=== PATIENT | female | born 1940 | race Caucasian/White ===

== ENCOUNTER 2021-09-13 15:48 | Outpatient (REF) | payer MEDICARE, OTHER, SELFPAY ==
[2021-09-13 17:51] LABS: SARS PCR* Negative SARS-CoV-2 (Negative)
== END 2021-09-13 15:49 | disposition home or self-care (01) ==
LOC: NPINS 15:48
PROVIDERS: PCP Family Medicine; Visit Provider Internal Medicine Gastroenterology
DX: Z20.822 Contact with and (suspected) exposure to COVID-19 (principal)
CPT/HCPCS: 87635

== ENCOUNTER 2021-09-16 07:48 | Outpatient (CLI) | payer MEDICARE, OTHER, SELFPAY | END 2021-09-16 07:49 | disposition home or self-care (01) | LOC: OP CLINIC 07:49 | PROVIDERS: PCP Family Medicine; Visit Provider Internal Medicine Gastroenterology | DX: Z12.11 Encounter for screening for malignant neoplasm of colon (principal); K57.30 Diverticulosis of large intestine without perforation or abscess without bleeding; K62.1 Rectal polyp; Z86.010 Personal history of colon polyps | CPT/HCPCS: 45380; 88305; J2250; J3010 ==

== ENCOUNTER 2022-05-21 10:22 | Emergency (ER) | payer MEDICARE, OTHER, SELFPAY ==
[2022-05-21 10:25] VITALS: BP 156/85; PULSE 72; RESP 18; TEMP 36.4; O2SAT 96; BMI 32.7
--- NOTE | 2022-05-21 10:39 | CRLHL7_ITS ---
For Patients: As a result of the Century Cures Act, medical imaging exams and procedure reports are released immediately into your electronic medical record. You may view this report before your referring provider. If you have questions, please contact your health care provider. INDICATION: Weakness. TECHNIQUE: CT head without contrast. COMPARISON: None. FINDINGS: The CSF spaces are consistent with patient`s age. Scattered hypodensities within the white matter tracts of both cerebral hemispheres are nonspecific but typically seen with small vessel disease/chronic white-matter ischemic changes of aging. No intracranial hemorrhage or mass effect is identified. No abnormal intra-axial or extra-axial fluid collections are present. The ventricles are unremarkable. There is mucosal thickening and a fluid level within the right maxillary sinus which may be seen with acute sinusitis. The remaining paranasal sinuses and mastoid air cells are well aerated. The calvarium is unremarkable. The orbits and scalp soft tissues are normal. IMPRESSION: 1. No acute intracranial abnormality. 2. Mucosal thickening and fluid level within the right maxillary sinus which may be seen with acute sinusitis. Please note that all CT scans at this facility use dose modulation, iterative reconstruction, and/or weight-based dosing when appropriate to reduce radiation dose to as low as reasonably achievable. Dictated by Sky Patel MD @ 05/21/2022 12:11:22 PM (Electronically Signed)
--- NOTE | 2022-05-21 10:43 | ED_ITS ---
HPI - General Adult General Time Seen by Provider: 10:43 Date Seen: 05/21/22 Chief complaint: Chest Pain Stated complaint: chest pressure Time Seen by Provider: 05/21/22 10:30 Source: patient Mode of arrival: EMS Limitations: no limitations History of Present Illness HPI narrative: Patient is a 1-year-old female who has a history of hypertension, and is at about the 1 year anniversary of her daughter's from a stroke. She had an episode this morning where she felt ?something was wrong? this was brief transient. She had a trip similar episode just immediately post hurt daughter's last year. Where she had word-finding inability in confusion. That improved she reports today was ?much less than before? patient reports she has had some nighttime chest tightness for about a month, today it did not seem to go away like it typically does in the morning and she got a nitro spray in the ambulance and that got better she has had no fevers chills cough no history of ischemic heart disease. She has been very stressed by her daughters passing and the anniversary of it. No fevers chills cough she resolved completely at this time and she has no chest pain or other concern. No neurologic concern at present. Related Data Home Medications Medication Instructions Recorded Confirmed atorvastatin 20 mg tablet 20 mg PO QPM 05/21/22 05/21/22 lisinopril 40 mg tablet 40 mg PO DAILY 05/21/22 05/21/22 Allergies Allergy/AdvReac Type Severity Reaction Status Date / Time cat dander Allergy Unknown Verified 05/21/22 10:47 Review of Systems Status of ROS: Reports: 6 or more systems reviewed and unremarkable except as noted in History and below [facility] Social History Smoking Status: Never smoker Do you use any of these nicotine containing products: None How often do you have a drink containing alcohol: never AUDIT-C Alcohol total score: 0 Non-prescribed substance use: denies use Exam Narrative: Exam Narrative: Objective: Patient's vital signs show slightly elevated blood pressure Alert orient x3, no cyanosis, no facial asymmetry Pupils react to light extra movements intact Neck is supple Chest clear Heart rhythm regular without murmur 2/6 systolic murmur Abdomen benign soft nontender Extremities are no edema neurologic nonfocal Good peripheral perfusion noted Const: Vital Signs, click to edit/add: Vital Signs - 24 hr 05/21/22 10:25 05/21/22 11:17 05/21/22 11:30 Temperature 97.6 F Pulse Rate 65 53 L Pulse Rate [Right Pulse Oximeter] 72 Respiratory Rate 18 Blood Pressure Blood Pressure [Ri ght Upper Arm] 156/85 H Pulse Oximetry 96 96 97 Oxygen Delivery Me thod Room Air 05/21/22 11:51 05/21/22 12:01 05/21/22 12:02 Temperature Pulse Rate 52 L 51 L 53 L Pulse Rate [Right Pulse Oximeter] Respiratory Rate Blood Pressure 130/72 128/71 Blood Pressure [Ri ght Upper Arm] Pulse Oximetry 97 96 96 Oxygen Delivery Me thod Course Vital Signs Vital signs: Initial Vital Signs Temperature 97.6 F 05/21/22 10:25 Temperature Source Temporal Artery Scan 05/21/22 10:25 Pulse Rate 72 05/21/22 10:25 Respiratory Rate 18 05/21/22 10:25 Blood Pressure 156/85 H 05/21/22 10:25 Blood Pressure Mean 108 05/21/22 10:25 Blood Pressure Position Sitting 05/21/22 10:25 Pulse Oximetry 96 05/21/22 10:25 Oxygen Delivery Method Room Air 05/21/22 10:25 Vital Signs Temperature 97.6 F 05/21/22 10:25 Pulse Rate 72 05/21/22 10:25 Respiratory Rate 18 05/21/22 10:25 Blood Pressure 156/85 H 05/21/22 10:25 Pulse Oximetry 96 05/21/22 10:25 Oxygen Delivery Method Room Air 05/21/22 10:25 Temperature 97.6 F 05/21/22 10:25 Pulse Rate 53 L 05/21/22 12:02 Respiratory Rate 18 05/21/22 10:25 Blood Pressure 128/71 05/21/22 12:02 Pulse Oximetry 96 05/21/22 12:02 Oxygen Delivery Method Room Air 05/21/22 10:25 Medical Decision Making MDM Narrative Medical decision making narrative: Patient is an 81 year white female with history of hypertension history of upper GI bleeding, and history of chest pain who presents with good amount of psychosocial stress, some chest pressure at night for the last month, some chest pressure today that relieved with nitro, but she also felt a little bit confusional and like she was not ?in control? the patient denies any focal neurologic complaint or weakness. She had a similar episode after the passing of her daughter a year ago. We are entering the year anniversary for her. I think could be appropriate to do a cardiac workup as well as a head CT scan she has a strong family history of stroke although I have a low likelihood of this. Would also check electrolytes rehydrate with some fluid will give her aspirin after CT scan is back and normal. Disposition pending findings above Addendum: EKG shows normal sinus rhythm no acute ST T wave changes Addendum: Patient's head CT shows a small amount of fluid and her sinus but no intracranial injury or abnormality. Patient continues to feel well. Patient's EKG looks unremarkable as mention, troponin is negative, white count and hemoglobin are normal, ER profile is unremarkable, CRP is negative. At this point with discussion with Liza we elected to let her go home at this time. She has a history of bleeding ulcer and I would not suggest she do aspirin and she is hesitant to do that as well. Would recommend follow up with regular doctor next couple of days for reassessment, light activity interim return as needed. The patient declined antibiotics for the sinus fluid Lab Data Labs: Lab Results 05/21/22 Range/Units 11:00 WBC 4.52 (4.50-11.00) K/uL RBC 4.10 (4.00-5.20) m/uL Hgb 12.9 (12.0-16.0) gm/dL Hct 38.6 (33.0-51.0) % MCV 94 (80-100) fL MCH 32 (26-34) pg MCHC 33 (32-36) gm/dL RDW Coeff of Alejo 13.0 (11.5-15.5) % Plt Count 224 (140-440) K/uL Neut % (Auto) 56.8 (42.0-72.0) % Lymph % (Auto) 30.8 (20-44) % [place] % (Auto) 10.0 (0.0-11.0) % Eos % (Auto) 1.5 (0.0-7.0) % Baso % (Auto) 0.9 (0.0-3.0) % Neut # (Auto) 2.57 (1.7-7.0) K/uL Lymph # (Auto) 1.39 (0.90-2.90) K/uL [place] # (Auto) 0.50 (0.00-0.90) K/UL Eos # (Auto) 0.07 (0.00-0.50) K/uL Baso # (Auto) 0.04 (0.00-0.30) K/uL Sodium 139 (135-149) mmol/L Potassium 4.1 (3.6-5.1) mmol/L Chloride 105 (96-114) mmol/L Carbon Dioxide 29 (20-32) mmol/L BUN 14 (7-30) mg/dL Creatinine 0.5 (0.5-1.5) mg/dL Estimated Creat Clear 33.71 Estimated GFR 93 ml/min Glucose 98 (60-115) mg/dL Calcium 9.0 (8.4-10.6) mg/dL Total Bilirubin 1.0 (0.1-1.5) mg/dL Direct Bilirubin 0.2 (0.0-0.5) mg/dL AST 34 (12-35) U/L ALT 29 (4-35) U/L Alkaline Phosphatase 59 (40-150) U/L Troponin I < 0.01 L (0.01-0.04) ng/mL C-Reactive Protein < 0.5 L (0.5-1.0) mg/dL NT-Pro-B Natriuret Pep 107 pg/mL Total Protein 6.7 (6.0-8.3) g/dL Albumin 4.1 (3.3-5.0) g/dL Discharge Plan Discharge Clinical Impression: Psychosocial stressors, Chest pain Patient Disposition: Home w/ Parent or Adult Condition: Improved Additional Instructions: 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 Follow up with regular doctor next 2-3 days, return to ED sooner problems or concerns. Activity Level: Light activity Discharge Diet: Regular Prescriptions: No Action atorvastatin 20 mg tablet 20 mg PO QPM lisinopril 40 mg tablet 40 mg PO DAILY Follow Up/Referrals: Parveen Sanon MD [Primary Care Provider] - Stand Alone Forms: [employer] Info Instructions
[2022-05-21 11:08] LABS: Basophils Absolute Auto 0.04 K/uL (0.00-0.30); Basophils Percent Auto 0.9 % (0.0-3.0); Eosinophils Absolute Auto 0.07 K/uL (0.00-0.50); Eosinophils Percent Auto 1.5 % (0.0-7.0); Hematocrit 38.6 % (33.0-51.0); Hemoglobin* 12.9 gm/dL (12.0-16.0); Lymphocytes Absolute Auto 1.39 K/uL (0.90-2.90); Lymphocytes Percent Auto 30.8 % (20-44); Mean Corpuscular HGB Conc 33 gm/dL (32-36); Mean Corpuscular Hemoglobin 32 pg (26-34); Mean Corpuscular Volume 94 fL (80-100); Neutrophils Absolute Auto 2.57 K/uL (1.7-7.0); Neutrophils Percent Auto 56.8 % (42.0-72.0); Platelet Count* 224 K/uL (140-440); White Blood Count* 4.52 K/uL (4.50-11.00)
[2022-05-21 11:12] LABS: Slide Review Reflex No
[2022-05-21 11:17] VITALS: PULSE 65; O2SAT 96
[2022-05-21 11:30] VITALS: PULSE 53; O2SAT 97
[2022-05-21] MEDS: 0.9 % SODIUM CHLORIDE 500 ML 500 ML IV (11:33)
[2022-05-21 11:43] LABS: Albumin* 4.1 g/dL (3.3-5.0); Chloride* 105 mmol/L (96-114)
[2022-05-21 11:44] LABS: Potassium* 4.1 mmol/L (3.6-5.1); Sodium* 139 mmol/L (135-149)
[2022-05-21 11:46] LABS: Creatinine* 0.5 mg/dL (0.5-1.5); Est. Creatinine Clearance* 33.71; Estimated Glomerular Filt Rate 93 ml/min
[2022-05-21 11:47] LABS: Alanine Aminotransferase* 29 U/L (4-35); Alkaline Phosphatase* 59 U/L (40-150); Aspartate Amino Transferase* 34 U/L (12-35); Bilirubin Direct* 0.2 mg/dL (0.0-0.5); Blood Urea Nitrogen* 14 mg/dL (7-30); Carbon Dioxide* 29 mmol/L (20-32); Glucose* 98 mg/dL (60-115); Total Protein* 6.7 g/dL (6.0-8.3)
[2022-05-21 11:51] VITALS: BP 130/72; PULSE 52; O2SAT 97
[2022-05-21 11:52] LABS: C Reactive Protein* < 0.5 mg/dL (0.5-1.0)
[2022-05-21 12:00] LABS: NT Pro B Type NatriureticPept* 107 pg/mL; Troponin I* < 0.01 ng/mL (0.01-0.04)
[2022-05-21 12:01] VITALS: PULSE 51; O2SAT 96
[2022-05-21 12:02] VITALS: BP 128/71; PULSE 53; O2SAT 96
== END 2022-05-21 12:49 | disposition home or self-care (01) ==
PROVIDERS: Emergency Provider Family Medicine; PCP Family Medicine
DX: F41.9 Anxiety disorder, unspecified (principal); F43.89 Other reactions to severe stress
CPT/HCPCS: 36415; 70450; 80048; 80076; 83880; 84484; 85025; 86140; 93005; 94761; 99284; 99285; J7120

== ENCOUNTER 2023-02-21 14:09 | Emergency (ER) | payer MEDICARE, OTHER, SELFPAY ==
[2023-02-21] VITALS (10 sets, daily range): BP systolic 101–122; BP diastolic 58–79; PULSE 49–65; RESP 18; TEMP 36.4; O2SAT 94–99; BMI 32.9
--- NOTE | 2023-02-21 14:30 | CRLHL7_ITS ---
For Patients: As a result of the Century Cures Act, medical imaging exams and procedure reports are released immediately into your electronic medical record. You may view this report before your referring provider. If you have questions, please contact your health care provider. INDICATION: Lower abdominal pain TECHNIQUE: CT abdomen and pelvis acquired with IV contrast. 89 mL Isovue 370 COMPARISON: None FINDINGS: Lower chest: 5 millimeter right lower lobe pulmonary nodule 3 Liver: Small cyst in the liver. Spleen: Unremarkable. Pancreas: Unremarkable. Gallbladder and bile ducts: Unremarkable. Kidneys: Unremarkable. Adrenal glands: Unremarkable. GI tract: Diverticulosis appendix is normal. Vascular structures: Negative. No sign of aneurysm. Lymph nodes: Unremarkable. Miscellaneous: Unremarkable. No free air or significant free fluid. Pelvic Organs: Unremarkable. Bones: Unremarkable for age. IMPRESSION: 1. No acute findings in the abdomen or pelvis. Diverticulosis. 2. 5 millimeter right lower lobe pulmonary nodule follow-up per Fleischner society guidelines. Please note that all CT scans at this facility use dose modulation, iterative reconstruction, and/or weight-based dosing when appropriate to reduce radiation dose to as low as reasonably achievable. Dictated by Polly Méndez MD @ 02/21/2023 4:40:11 PM (Electronically Signed)
--- NOTE | 2023-02-21 14:56 | ED.GENADULT ---
HPI - General Adult General Date Seen: 02/21/23 Chief complaint: Dizziness/Vertigo Stated complaint: Dizzy, cold, stomach ache, sore throat Time Seen by Provider: 02/21/23 14:11 Source: patient Mode of arrival: ambulatory Limitations: no limitations History of Present Illness HPI narrative: Patient is an 82-year-old female with history of hypertension presenting to the emergency department for lightheadedness. She states this morning around 09 or 10 o'clock she started to feel sick while she is getting coffee with friends and was not feeling very well so she went home to rest. She laid on the rest and woke up later in the afternoon and was still having the symptoms. She states she is feeling lightheaded like she was going to fall and was seeing stars in her vision. She was brought by family member to the emergency department but states in the way here symptoms fully resolved and she is no longer feeling lightheaded. Denies chest pain or shortness of breath. Denies numbness or weakness. Does states she has some lower abdominal pain that started this morning. Denies dysuria, fevers, chills. Does states she is a chronic issue with intermittent diarrhea constipation and has not noticed any changes to that today. She is also complaining of a sore throat that started this morning. Related Data Home Medications Medication Instructions Recorded Confirmed atorvastatin 20 mg tablet 20 mg PO QPM 05/21/22 02/21/23 lisinopril 40 mg tablet 40 mg PO DAILY 05/21/22 02/21/23 Previous Rx's Medication Instructions Recorded cephalexin 250 mg capsule 250 mg PO QID #20 caps 02/21/23 Allergies Allergy/AdvReac Type Severity Reaction Status Date / Time cat dander Allergy Unknown Verified 02/21/23 14:17 Review of Systems Status of ROS: Reports: 10 or more systems reviewed and unremarkable except as noted in History and below PFSH PFS Social History Smoking Status: Never smoker Do you use any of these nicotine containing products: None How often do you have a drink containing alcohol: never AUDIT-C Alcohol total score: 0 Non-prescribed substance use: denies use Exam Narrative: Exam Narrative: Const: Well-nourished, Well-developed, in no distress Eyes: PERRL, no conjunctival injection, and symmetrical lids HENT: Atraumatic external nose and ears. Moist mucous membranes. Uvula midline, no tonsillar exudate or swelling Neck: Symmetric, trachea midline, No thyromegaly. CVS: Bradycardia, No murmurs or gallops. Peripheral pulses 2+ and equal in all extremities RESP: Unlabored respiratory effort. Clear to auscultation bilaterally. GI: Nontender/Nondistended, No rebound or guarding. MSK:Extremities w/o deformity, Normal Active ROM Skin: Warm, Dry. No rashes or lesions. Neuro: Normal Muscle tone, No focal neurological deficits. Psych: Awake, Alert, & Oriented x3. Appropriate mood and affect. Const: Vital Signs, click to edit/add: Vital Signs - 24 hr 02/21/23 14:17 02/21/23 15:17 02/21/23 15:41 Temperature 97.5 F L Pulse Rate 51 L Pulse Rate [Pulse Oximeter] 49 L Pulse Rate [orthos tatic lying Pulse Oximeter] 56 L Pulse Rate [orthos tatic sitting Puls e Oximeter] 60 Pulse Rate [orthos tatic standing] 58 L Respiratory Rate 18 Blood Pressure Blood Pressure [Ri ght Upper Arm] 106/58 L Blood Pressure [or thostatic lying Ri ght Arm] 101/60 Blood Pressure [or thostatic sitting Right Arm] 105/79 Blood Pressure [or thostatic standing Right Arm] 102/59 L Pulse Oximetry 95 95 Oxygen Delivery Ne thod Room Air 02/21/23 15:45 02/21/23 16:04 02/21/23 16:11 Temperature Pulse Rate 52 L 65 65 Pulse Rate [Pulse Oximeter] Pulse Rate [orthos tatic lying Pulse Oximeter] Pulse Rate [orthos tatic sitting Puls e Oximeter] Pulse Rate [orthos tatic standing] Respiratory Rate Blood Pressure 122/71 Blood Pressure [Ri ght Upper Arm] Blood Pressure [or thostatic lying Ri ght Arm] Blood Pressure [or thostatic sitting Right Arm] Blood Pressure [or thostatic standing Right Arm] Pulse Oximetry 98 94 97 Oxygen Delivery Me thod 02/21/23 16:15 Temperature Pulse Rate 58 L Pulse Rate [Pulse Oximeter] Pulse Rate [orthos tatic lying Pulse Oximeter] Pulse Rate [orthos tatic sitting Puls e Oximeter] Pulse Rate [orthos tatic standing] Respiratory Rate Blood Pressure Blood Pressure [Ri ght Upper Arm] Blood Pressure [or thostatic lying Ri ght Arm] Blood Pressure [or thostatic sitting Right Arm] Blood Pressure [or thostatic standing Right Arm] Pulse Oximetry 99 Oxygen Delivery Me thod Course Vital Signs Vital signs: Initial Vital Signs Temperature 97.5 F L 02/21/23 14:17 Temperature Source Temporal Artery Scan 02/21/23 14:17 Pulse Rate 49 L 02/21/23 14:17 Respiratory Rate 18 02/21/23 14:17 Blood Pressure 106/58 L 02/21/23 14:17 Blood Pressure Mean 74 02/21/23 14:17 Blood Pressure Position Semi-Fowlers 02/21/23 14:17 Pulse Oximetry 95 02/21/23 14:17 Oxygen Delivery Method Room Air 02/21/23 14:17 Vital Signs Temperature 97.5 F L 02/21/23 14:17 Pulse Rate 49 L 02/21/23 14:17 Respiratory Rate 18 02/21/23 14:17 Blood Pressure 106/58 L 02/21/23 14:17 Pulse Oximetry 95 02/21/23 14:17 Oxygen Delivery Method Room Air 02/21/23 14:17 Temperature 97.5 F L 02/21/23 14:17 Pulse Rate 58 L 02/21/23 16:15 Respiratory Rate 18 02/21/23 14:17 Blood Pressure 122/71 02/21/23 16:11 Pulse Oximetry 99 02/21/23 16:15 Oxygen Delivery Method Room Air 02/21/23 14:17 Medical Decision Making [facility] Narrative Medical decision making narrative: Patient is an 82-year-old female presenting to emergency department for multiple complaints. Her main issue was the lightheadedness that preceded her coming into the emergency department. Those symptoms have since resolved. She still having a sore throat that started today and lower abdominal pain. I did note that she is bradycardic at this time. Patient may her heart rate would drop into the high 40s quite is mostly in the mid 50s. Based on chart review she usually lives in the low 60s occasionally dropping down into the high 50s for heart repair. Her blood pressure is a little low at this time. We will do orthostatic blood pressures. Will also order a CT scan of the abdomen and pelvis along with the urinalysis, CBC, CMP, COVID/flu/RSV, troponin BNP. Throat shows no signs of peritonsillar abscess or concerning findings. Orthostatic blood pressures were normal for her. Lab work returned showing no concerning abnormalities. EKG showed no concerning findings. A urinalysis shows leukocyte esterase and 10-25 white blood cells. With her to lower abdominal pain I will treat this as a UTI at this time. COVID/flu/RSV is negative. Abdominal CT just shows a pulmonary nodule that should be follow-up outpatient Lab Data Labs: Lab Results 02/21/23 02/21/23 02/21/23 Range/Units 14:31 14:45 16:10 WBC 8.22 (4.50-11.00) K/uL RBC 4.42 (4.00-5.20) m/uL Hgb 13.8 (12.0-16.0) gm/dL Hct 43.3 (33.0-51.0) % MCV 98 (80-100) fL MCH 31 (26-34) pg MCHC 32 (32-36) gm/dL RDW Coeff of Alejo 12.9 (11.5-15.5) % Plt Count 232 (140-440) K/uL Neut % (Auto) 73.9 H (42.0-72.0) % Lymph % (Auto) 16.9 L (20-44) % [place] % (Auto) 7.7 (0.0-11.0) % Eos % (Auto) 0.7 (0.0-7.0) % Baso % (Auto) 0.7 (0.0-3.0) % Neut # (Auto) 6.10 (1.7-7.0) K/uL Lymph # (Auto) 1.40 (0.90-2.90) K/uL [place] # (Auto) 0.60 (0.00-0.90) K/UL Eos # (Auto) 0.06 (0.00-0.50) K/uL Baso # (Auto) 0.06 (0.00-0.30) K/uL Abs Immat Gran (auto) 0.01 (0.00-0.30) K/uL Imm/Tot Granulo (auto) 0.1 % Sodium 139 (135-149) mmol/L Potassium 4.6 (3.6-5.1) mmol/L Chloride 107 (96-114) mmol/L Carbon Dioxide 27 (20-32) mmol/L Anion Gap 5 L (7-15) mEq/L BUN 17 (7-30) mg/dL Creatinine 0.8 (0.5-1.5) mg/dL Estimated Creat Clear 33.12 Estimated GFR 73 ml/min Glucose 107 (60-115) mg/dL Calcium 9.4 (8.4-10.6) mg/dL Total Bilirubin 1.3 (0.1-1.5) mg/dL AST 34 (12-35) U/L ALT 23 (4-35) U/L Alkaline Phosphatase 72 (40-150) U/L NT-Pro-B Natriuret Pep 814 pg/mL Total Protein 7.2 (6.0-8.3) g/dL Albumin 4.6 (3.3-5.0) g/dL Urine Color Yellow (Yellow) Urine Appearance Clear (Clear) Urine pH 6.5 (5.0-8.5) Ur Specific [place] 1.015 (1.000-1.030) Urine Protein 1+ A (Negative) Urine Glucose (UA) Negative (Negative) Urine Ketones Negative (Negative) Urine Blood Negative (Negative) Urine Nitrite Negative (Negative) Urine Bilirubin Negative (Negative) Urine Urobilinogen 0.2 (0.2-1.0) Ur Leukocyte Esterase 1+ A (Negative) Urine RBC 0-2 (0-2) Urine WBC 10-25 A (0-5) Ur Squamous Epith Cells Few (None-Few) Urine Bacteria None (None) WBC Casts Moderate A (None) SARS-CoV-2 (PCR) Negative SARS-CoV-2 (Negative) Influenza Type A (PCR) Negative PCR FLU A (Negative) Influenza Type B (PCR) Negative PCR FLU B (Negative) RSV (PCR) Negative PCR RSV (Negative) POC Troponin I 0.00 L (0.01-0.04) ng/ml Imaging Data CT scan abdomen pelvis: Radiologist's impression: 1. No acute findings in the abdomen or pelvis. Diverticulosis. 2. 5 millimeter right lower lobe pulmonary nodule follow-up per Fleischner society guidelines. Please note that all CT scans at this facility use dose modulation, iterative reconstruction, and/or weight-based dosing when appropriate to reduce radiation dose to as low as reasonably achievable. Dictated by Polly Dev,MD @ 02/21/2023 4:40:11 PM ECG Data Attestation: I personally reviewed and interpreted this ECG as follows: Prior ECG tracings: available for review Interpretation: Sinus bradycardia with a rate of 51 beats per minute, normal intervals, normal axis, no ST or T-wave abnormalities. Looks similar previous EKG on file Discharge Plan Discharge Clinical Impression: Acute UTI, Bradycardia Patient Disposition: Home, Self-Care Condition: Improved Instructions: Bradycardia (ED) Additional Instructions: Follow-up with the primary care provider next week if you have any concerns. Return to the emergency department for new or worsening symptoms. Take the antibiotics as prescribed. Of note there is a pulmonary nodule seen on the CT scan. This is an incidental finding but is recommended to have outpatient follow-up for it. Prescriptions: New cephalexin 250 mg capsule 250 mg PO QID Qty: 20 0RF No Action atorvastatin 20 mg tablet 20 mg PO QPM lisinopril 40 mg tablet 40 mg PO DAILY Follow Up/Referrals: Parveen Sanon MD [Primary Care Provider] - Stand Alone Forms: [employer] Info Instructions
[2023-02-21 15:04] LABS: Basophils Absolute Auto 0.06 K/uL (0.00-0.30); Basophils Percent Auto 0.7 % (0.0-3.0); Eosinophils Absolute Auto 0.06 K/uL (0.00-0.50); Eosinophils Percent Auto 0.7 % (0.0-7.0); Hematocrit 43.3 % (33.0-51.0); Hemoglobin* 13.8 gm/dL (12.0-16.0); Immature Granulocytes Abs Auto 0.01 K/uL (0.00-0.30); Immature Granulocytes Pct Auto 0.1 %; Lymphocytes Percent Auto 16.9 % (20-44); Mean Corpuscular HGB Conc 32 gm/dL (32-36); Mean Corpuscular Hemoglobin 31 pg (26-34); Mean Corpuscular Volume 98 fL (80-100); Monocytes Percent Auto 7.7 % (0.0-11.0); Neutrophils Percent Auto 73.9 % (42.0-72.0); Platelet Count* 232 K/uL (140-440); RDW Coefficient of Variation % 12.9 % (11.5-15.5); Red Blood Count 4.42 m/uL (4.00-5.20); White Blood Count* 8.22 K/uL (4.50-11.00)
[2023-02-21 15:06] LABS: Slide Review Reflex No
[2023-02-21 15:10] LABS: Albumin* 4.6 g/dL (3.3-5.0); Chloride* 107 mmol/L (96-114); Potassium* 4.6 mmol/L (3.6-5.1); Sodium* 139 mmol/L (135-149)
[2023-02-21 15:12] LABS: Bilirubin Total* 1.3 mg/dL (0.1-1.5); Creatinine* 0.8 mg/dL (0.5-1.5); Est. Creatinine Clearance* 33.12; Estimated Glomerular Filt Rate 73 ml/min
[2023-02-21 15:13] LABS: Alanine Aminotransferase* 23 U/L (4-35); Alkaline Phosphatase* 72 U/L (40-150); Anion Gap 5 mEq/L (7-15); Aspartate Amino Transferase* 34 U/L (12-35); Blood Urea Nitrogen* 17 mg/dL (7-30); Calcium* 9.4 mg/dL (8.4-10.6); Carbon Dioxide* 27 mmol/L (20-32); Glucose* 107 mg/dL (60-115); Total Protein* 7.2 g/dL (6.0-8.3)
[2023-02-21 15:32] LABS: PCR FLU A Negative PCR FLU A (Negative); PCR FLU B Negative PCR FLU B (Negative); PCR RSV Negative PCR RSV (Negative); SARS PCR* Negative SARS-CoV-2 (Negative)
[2023-02-21 15:47] LABS: NT Pro B Type NatriureticPept* 814 pg/mL
[2023-02-21 16:15] LABS: Appearance Urine Clear (Clear); Bilirubin Urine Negative (Negative); Blood Urine Negative (Negative); Color Urine Yellow (Yellow); Glucose Urine Negative (Negative); Ketones Urine Negative (Negative); Leukocyte Esterase Urine 1+ (Negative); Nitrite Urine Negative (Negative); Protein Urine 1+ (Negative); Specific Gravity Urine 1.015 (1.000-1.030); Urobilinogen Urine 0.2 (0.2-1.0); pH Urine 6.5 (5.0-8.5)
[2023-02-21 16:29] LABS: RBC Urine 0-2 (0-2); Squamous Epithelial Cell Urine Few (None-Few); White Blood Cell Casts Urine Moderate
== END 2023-02-21 17:08 | disposition home or self-care (01) ==
PROVIDERS: Emergency Provider Student in an Organized Health Care Education/Training Program; PCP Family Medicine
DX: N39.0 Urinary tract infection, site not specified (principal); R00.1 Bradycardia, unspecified
CPT/HCPCS: 36415; 74177; 80053; 81001; 83880; 84484; 85025; 87086; 87631; 93005; 99283; 99284; 99285; Q9967

== ENCOUNTER 2023-04-27 12:36 | Emergency (ER) | payer MEDICARE, OTHER, SELFPAY ==
[2023-04-27 12:44] VITALS: BP 151/82; PULSE 52; RESP 14; TEMP 37.4; O2SAT 95; BMI 33.5
--- NOTE | 2023-04-27 12:53 | ED.GENADULT ---
HPI - General Adult General Chief complaint: Chest Pain Stated complaint: nausea, chest pain Time Seen by Provider: 04/27/23 12:43 History of Present Illness HPI narrative: Pt here for eval of racing heart, L chest pressure x1mo. BP was elevated to SBP 170s and SOB with exertion so she decided to present to ED. Also had back pain (between shoulder blades ), but is resolving. 82-year-old woman presenting to the emergency department with complaint of chest pressure. Has been having episodes of racing heart though not clear that she really feels it. Episodes on and off over the last month or 2. More dyspnea with exertion has been on and off as well. Has had a ZIO patch and reports episodes of ?racing heart? though unclear what this rhythm is. Normally she says when she comes in she has a low resting heart rate. Has been having episodes of lightheadedness as well in today also had some pain in her back between her shoulder blades. Does not describe radicular symptoms down upper extremities or lower extremities. No cough or cold symptoms. Continued to have a sensation of pressure in her mid chest at this time but is lessening. As is the pain in her back. These feelings of chest pressure and shortness of breath with exertion do pass if she rests typically. Does not sound as if she has had an echocardiogram as part of this workup. She is however pending ultrasound of her carotids she said scheduled for 230 this afternoon.. She does though also endorse a history of vertiginous symptoms more remotely. Related Data Home Medications Medication Instructions Recorded Confirmed atorvastatin 20 mg tablet 20 mg PO QPM 05/21/22 04/27/23 lisinopril 40 mg tablet 40 mg PO DAILY 05/21/22 04/27/23 atenolol 25 mg tablet 25 mg PO DAILY 04/27/23 04/27/23 Previous Rx's Medication Instructions Recorded hydroxyzine HCl 25 mg tablet 25 - 50 mg (1 - 2 x 25 mg) PO TID 04/27/23 PRN anxiety #30 tabs Allergies Allergy/AdvReac Type Severity Reaction Status Date / Time cat dander Allergy Unknown Verified 02/21/23 14:17 Review of Systems Status of ROS: Reports: 6 or more systems reviewed and unremarkable except as noted in History and below PFSH PFSH Social History Smoking Status: Never smoker Do you use any of these nicotine containing products: None How often do you have a drink containing alcohol: never AUDIT-C Alcohol total score: 0 Non-prescribed substance use: denies use service: No Exam Narrative: Exam Narrative: Pleasant. Subtly labored in her breathing. Not particularly tachypneic. Lungs sound to be clear. She has no supraclavicular crepitus. Trachea is midline. Can nerves 2 through 12 intact. Heart is in the bradycardic rate. Does seem to be regular other than some ectopic beats. Abdomen is protuberant soft nontender. Extremities are well perfused and she is without lower extremity edema. Quite reproducible pain to palpation the periscapular area right greater than left. There appears to be an old surgical scar in the right periscapular area Const: Vital Signs, click to edit/add: Vital Signs - 24 hr 04/27/23 12:44 04/27/23 13:42 04/27/23 15:56 Temperature 99.3 F 99.3 F Pulse Rate [Pulse Oximeter] 52 L 48 L 46 L Respiratory Rate 14 14 16 Blood Pressure [Le ft Upper Arm] 151/82 H 155/69 H 164/87 H Pulse Oximetry 95 94 96 Oxygen Delivery Me thod Room Air Room Air Room Air 04/27/23 16:53 Temperature Pulse Rate [Pulse Oximeter] Respiratory Rate Blood Pressure [Le ft Upper Arm] 168/84 H Pulse Oximetry Oxygen Delivery Me thod Documenting provider has reviewed patient's vital signs: yes Course Vital Signs Vital signs: Initial Vital Signs Temperature 99.3 F 04/27/23 12:44 Temperature Source Temporal Artery Scan 04/27/23 12:44 Pulse Rate 52 L 04/27/23 12:44 Pulse Rhythm Regular 04/27/23 12:44 Respiratory Rate 14 04/27/23 12:44 Blood Pressure 151/82 H 04/27/23 12:44 Blood Pressure Mean 105 04/27/23 12:44 Blood Pressure Position Sitting 04/27/23 12:44 Pulse Oximetry 95 04/27/23 12:44 Oxygen Delivery Method Room Air 04/27/23 12:44 Vital Signs Temperature 99.3 F 04/27/23 12:44 Pulse Rate 52 L 04/27/23 12:44 Respiratory Rate 14 04/27/23 12:44 Blood Pressure 151/82 H 04/27/23 12:44 Pulse Oximetry 95 04/27/23 12:44 Oxygen Delivery Method Room Air 04/27/23 12:44 Temperature 99.3 F 04/27/23 13:42 Pulse Rate 46 L 04/27/23 15:56 Respiratory Rate 16 04/27/23 15:56 Blood Pressure 168/84 H 04/27/23 16:53 Pulse Oximetry 96 04/27/23 15:56 Oxygen Delivery Method Room Air 04/27/23 15:56 Medical Decision Making MDM Narrative Medical decision making narrative: Differential would include pneumonia though she does not appear to have infectious prodrome. A non perfusing rhythm to some degree. She is not in rapid dysrhythmia at this time. Will evaluate though for ischemic cardiovascular disease and pulmonary embolus as well. Monitor on manager monitoring for any further dysrhythmia. Labs are reassuring. Mildly elevated potassium of 5.2 Chest x-ray with normal cardiovascular silhouette by my read and without infiltrate. No pneumothorax. Stable on monitor. Continued with mild bradycardia and improved pressures. On reassessment does confirm that is back to normal. She wonders aloud whether not these maybe attacks of anxiety. She she appears pleasantly and slightly annoyed that keeps getting talked into going into the emergency department Does confirm that actually has a cardiac stress test and cardiology appointment coming up week may. See patient discharge plan further discussion Lab Data Lab results reviewed: Yes I reviewed the patient's lab results Labs: Lab Results 04/27/23 04/27/23 04/27/23 Range/Units 13:30 13:33 15:40 WBC 7.25 (4.50-11.00) K/uL RBC 4.21 (4.00-5.20) m/uL Hgb 13.3 (12.0-16.0) gm/dL Hct 40.3 (33.0-51.0) % MCV 96 (80-100) fL MCH 32 (26-34) pg MCHC 33 (32-36) gm/dL RDW Coeff of [place]jo 12.6 (11.5-15.5) % Plt Count 201 (140-440) K/uL Neut % (Auto) 66.8 (42.0-72.0) % Lymph % (Auto) 22.2 (20-44) % [place] % (Auto) 9.5 (0.0-11.0) % Eos % (Auto) 1.0 (0.0-7.0) % Baso % (Auto) 0.4 (0.0-3.0) % Neut # (Auto) 4.84 (1.7-7.0) K/uL Lymph # (Auto) 1.61 (0.90-2.90) K/uL [place] # (Auto) 0.70 (0.00-0.90) K/UL Eos # (Auto) 0.07 (0.00-0.50) K/uL Baso # (Auto) 0.03 (0.00-0.30) K/uL Abs Immat Gran (auto) 0.01 (0.00-0.30) K/uL Imm/Tot Granulo (auto) 0.1 % D-Dimer Quant (PE/DVT) 0.39 (0.00-0.50) ug/ml Sodium 139 (135-149) mmol/L Potassium 5.2 H (3.6-5.1) mmol/L Chloride 107 (96-114) mmol/L Carbon Dioxide 29 (20-32) mmol/L Anion Gap 3 L (7-15) mEq/L BUN 16 (7-30) mg/dL Creatinine 0.5 (0.5-1.5) mg/dL Estimated Creat Clear 33.12 Estimated GFR 92 ml/min Glucose 95 (60-115) mg/dL Calcium 9.4 (8.4-10.6) mg/dL Magnesium 2.2 (1.5-2.6) mg/dL Troponin I 0.01 (0.01-0.04) ng/mL C-Reactive Protein 0.7 (0.5-1.0) mg/dL SARS-CoV-2 (PCR) Negative SARS-CoV-2 (Negative) Influenza Type A (PCR) Negative PCR FLU A (Negative) Influenza Type B (PCR) Negative PCR FLU B (Negative) RSV (PCR) Negative PCR RSV (Negative) POC Troponin I 0.00 L (0.01-0.04) ng/ml ECG Data Attestation: I personally reviewed and interpreted this ECG as follows: (Sinus bradycardia rate of 48) Discharge Plan Discharge Clinical Impression: Dyspnea, Chest pressure, Upper back pain Patient Disposition: Home w/ Parent or Adult Condition: Improved Additional Instructions: Yes I suppose this is possible that you are having episodes of anxiety. It is a little hard to prove. I can prescribe some hydroxyzine that you might take if you are feeling particularly anxious. Otherwise I think it is great that you have a follow-up for stress test of your heart and follow-up with Cardiology shortly. Prescriptions: New hydroxyzine HCl 25 mg tablet 25 - 50 mg PO TID PRN (Reason: anxiety) Qty: 30 0RF No Action atorvastatin 20 mg tablet 20 mg PO QPM lisinopril 40 mg tablet 40 mg PO DAILY atenolol 25 mg tablet 25 mg PO DAILY Follow Up/Referrals: Parveen Sanon MD [Referring] - Stand Alone Forms: [employer] Info Instructions
[2023-04-27 13:40] LABS: Basophils Absolute Auto 0.03 K/uL (0.00-0.30); Basophils Percent Auto 0.4 % (0.0-3.0); Eosinophils Absolute Auto 0.07 K/uL (0.00-0.50); Hematocrit 40.3 % (33.0-51.0); Hemoglobin* 13.3 gm/dL (12.0-16.0); Immature Granulocytes Abs Auto 0.01 K/uL (0.00-0.30); Immature Granulocytes Pct Auto 0.1 %; Lymphocytes Absolute Auto 1.61 K/uL (0.90-2.90); Lymphocytes Percent Auto 22.2 % (20-44); Mean Corpuscular HGB Conc 33 gm/dL (32-36); Mean Corpuscular Hemoglobin 32 pg (26-34); Mean Corpuscular Volume 96 fL (80-100); Monocytes Percent Auto 9.5 % (0.0-11.0); Neutrophils Absolute Auto 4.84 K/uL (1.7-7.0); Neutrophils Percent Auto 66.8 % (42.0-72.0); Platelet Count* 201 K/uL (140-440); RDW Coefficient of Variation % 12.6 % (11.5-15.5); Red Blood Count 4.21 m/uL (4.00-5.20); White Blood Count* 7.25 K/uL (4.50-11.00)
[2023-04-27 13:42] VITALS: BP 155/69; PULSE 48; RESP 14; TEMP 37.4; O2SAT 94
[2023-04-27 13:43] LABS: Slide Review Reflex No
[2023-04-27 14:00] LABS: Chloride* 107 mmol/L (96-114); D Dimer Quantitative* 0.39 ug/ml (0.00-0.50); Sodium* 139 mmol/L (135-149)
[2023-04-27 14:03] LABS: Anion Gap 3 mEq/L (7-15); Blood Urea Nitrogen* 16 mg/dL (7-30); Carbon Dioxide* 29 mmol/L (20-32); Creatinine* 0.5 mg/dL (0.5-1.5); Est. Creatinine Clearance* 33.12; Estimated Glomerular Filt Rate 92 ml/min
[2023-04-27 14:04] LABS: Calcium* 9.4 mg/dL (8.4-10.6); Glucose* 95 mg/dL (60-115); Magnesium* 2.2 mg/dL (1.5-2.6)
[2023-04-27 14:06] LABS: Potassium* 5.2 mmol/L (3.6-5.1)
[2023-04-27 14:07] LABS: C Reactive Protein* 0.7 mg/dL (0.5-1.0)
[2023-04-27 14:15] LABS: Troponin I* 0.01 ng/mL (0.01-0.04)
--- NOTE | 2023-04-27 15:29 | XR_ITS ---
Patient: ELIE RHODES Facility:?[facility] Patient ID:?[id number] Site Patient [id number]:?[id number]. Site :?[id number] Study:?XRay-Chest PORTABLE-04/27/2023 3:55:00 PM Ordering Physician:?DR. DAUGHERTY Final Report: INDICATION: DYSPNEA. TECHNIQUE: Chest 2 views. COMPARISON: None. FINDINGS: Cardiovascular and mediastinum: Cardiomediastinal silhouette is within normal limits. Lungs and pleural spaces: Lungs are clear. No sign of pleural effusion. No pneumothorax. Bones and soft tissues: No significant findings. IMPRESSION: No acute cardiopulmonary process identified. Dictated by Isaac Barron MD @ 04/27/2023 4:08:01 PM Signed by:?Isaac Barron MD @04/27/2023 4:08:01 PM (Electronic Signature)
[2023-04-27 15:56] VITALS: BP 164/87; PULSE 46; RESP 16; O2SAT 96
[2023-04-27 16:53] VITALS: BP 168/84
[2023-04-27 20:29] LABS: PCR FLU A Negative PCR FLU A (Negative); PCR FLU B Negative PCR FLU B (Negative); PCR RSV Negative PCR RSV (Negative); SARS PCR* Negative SARS-CoV-2 (Negative)
== END 2023-04-27 16:54 | disposition home or self-care (01) ==
PROVIDERS: Emergency Provider Family Medicine; PCP Physician Assistant
DX: R07.89 Other chest pain (principal); R06.00 Dyspnea, unspecified
CPT/HCPCS: 36415; 71045; 80048; 83735; 84484; 85025; 85379; 86140; 87040; 87631; 99284

== ENCOUNTER 2023-10-16 13:39 | Emergency (ER) | payer MEDICARE, OTHER, SELFPAY ==
[2023-10-16] VITALS (14 sets, daily range): BP systolic 172–179; BP diastolic 83–91; PULSE 44–49; RESP 16; TEMP 36.5; O2SAT 96–99
--- NOTE | 2023-10-16 13:46 | ED_ITS ---
HPI - General Adult General Date Seen: 10/16/23 Chief complaint: Chest Pain Stated complaint: Chest pain Time Seen by Provider: 10/16/23 13:42 History of Present Illness HPI narrative: 83-year-old female with a past medical history of hypertension (lisinopril, ate nolol), previous upper GI bleed, H pylori infection, dyslipidemia (atorvastatin) presenting to the ER today for chest pain and arm tingling. She was sent in after a phone conversation with the [facility] clinic triage nurse today. The patient has had symptoms of chest pressure, generalized fatigue, shortness of breath for a week or longer along with tingling in her left arm around that same time frame. When the triage nurse heard about the tingling left arm, she center in to be evaluated for possible neurologic problem or stroke. The she has a past medical history of hypertension. She is on lisinopril and atenolol. She also says that she had ?elevated heart rates? about 6 months ago and had a Zio patch at that time and a cardiology visit. She does not know the name of the heart rhythm that she had. She is not on anticoagulants. She does not recall any mention of AFib or SVT. She was seen by her beater machine operator and told that she was okay to follow-up in 6 months. She has an appointment coming up in November and is currently wearing a Zio patch in anticipation of that visit. The nurse from [facility] called her today to confirm the November appointment, and when she discussed her symptoms, the nurse made her come to the ER. According to records from the the [facility] medical record on June 08 she saw Cardiology. The previous CO patch showed SVT but no AFib. Her Zio patch from February demonstrated sinus rhythm primarily with an average of 64 beats per minute. There are 31 episodes of supraventricular tachycardia with the fastest being at 171 beats per minute and the longest lasting 17 beats. There was occasional ectopy. There is a question of atrial tachycardia. She did not trigger the device at all during this time Stress echo on 05/18/2023 was negative for inducible ischemia. Was seen in the ER on April 26 for chest pain (ongoing for 1 month at that time). Chest x-ray was normal. WBC 7.2, hemoglobin 13.3, electrolytes normal except for potassium 5.2. Creatinine 0.5. Troponin undetectable. Viral PCR swabs negative. History from the patient is that since last week or maybe 10 days ago she has noticed fatigue. She lives in [facility] and typically walks 2 [place] the post office [place] to get her mail. Beginning last week she does notice that by the time she got back from her walk to the post office and back she was very fatigued, she has needed to sit down and rest and has been sleeping much more than normal. She has also had vague shortness of breath with exertion and at rest over that same time frame. She has been sleeping more during the day because she is so tired, but then notes she cannot sleep at night. She has also had some discomfort in the high central portion of her chest for about the past week in feels like her left arm from the shoulder to the fingertips just feels little bit tingly and ?cold?. Is not weak. No trouble with coordination. The arm is not been changing colors. No swelling. No injury. No neck pain. No headache. No back pain. No abdominal pain. No swelling in her legs. She wonders if she might just be ?stressed?. She has a history of anxiety and stress and attributes her symptoms last spring to that. She does take medications for her blood pressure. She thinks she is on a beta- steph that was started last spring. She does not know the name. Med list from [facility] indicates that she is on atenolol 25 mg once daily, lisinopril 40 mg daily for blood pressure. . Related Data Home Medications ?Medication ?Instructions ?Recorded ?Confirmed atorvastatin 20 mg tablet 20 mg PO QPM 05/21/22 10/16/23 lisinopril 40 mg tablet 40 mg PO DAILY 05/21/22 10/16/23 atenolol 25 mg tablet 25 mg PO DAILY 04/27/23 10/16/23 Previous Rx's ?Medication ?Instructions ?Recorded hydroxyzine HCl 25 mg tablet 25 - 50 mg (1 - 2 x 25 mg) PO TID 04/27/23 PRN anxiety #30 tabs Allergies Allergy/AdvReac Type Severity Reaction Status Date / Time cat dander Allergy Unknown Verified 02/21/23 14:17 PFSH [facility] Social History Smoking Status: Never smoker Do you use any of these nicotine containing products: None Second hand tobacco smoke exposure: No How often do you have a drink containing alcohol: never AUDIT-C Alcohol total score: 0 Non-prescribed substance use: denies use service: No Exam Narrative: Exam Narrative: Constitutional: Appears well-developed and well-nourished. Alert. Conversant. Non toxic. HENT: Head: Atraumatic. Nose: Nose normal. Mouth/Throat: Oral mucosa is clear and moist. no trismus. Pharynx normal. Eyes: Conjunctivae normal. EOM normal. Pupils equal, round, and reactive to light. No scleral icterus. Neck: Normal range of motion. Neck supple. No tracheal deviation present. No thyromegaly Cardiovascular: Bradycardic-about 48-50, sinus Constantin on the monitor, regular rhythm. No gallop. No friction rub. No murmur heard. Symmetric radial a and PT artery pulses. Although her left upper extremity subjectively feels cold, there is no objective crew nest, pallor, duskiness, swelling, bruising, or other size of malperfusion Pulmonary/Chest: Effort normal. No stridor. No respiratory distress. No wheezes. No rales. No rhonchi . No tenderness. Abdominal: Soft. Bowel sounds normal. No distension. No mass. No tenderness. No rebound. No guarding. Musculoskeletal: RUE: Normal range of motion. No tenderness. No deformity LUE: Normal range of motion. No tenderness. No deformity RLE: Normal range of motion. No edema. No tenderness. No deformity LLE: Normal range of motion. No edema. No tenderness. No deformity Lymph: No cervical adenopathy. Neuro: Mental status normal. Attention normal. Alert and oriented x3. GCS 15. Memory normal. Speech fluent. Cognition normal. Cranial Nerves intact II-XII except I did not formally test gag or visual acuity. EOMI. Palate elevates symmetrically and tongue protrudes in the midline. Strength: 5/5 trapezius on the right and left 5/5 deltoid on the right and left 5/5 biceps on the right and left 5/5 triceps on the right and left 5/5 social service technician on the right and left 5/5 thumb opposition on the right and le ft 5/5 finger abduction on the right and le ft 5/5 hip flexors (L3) on the right and le ft 5/5 quadriceps (L4) on the right and lef t 5/5 tibialis anterior on the right and l eft 5/5 EHL (L5) on the right and left 5/5 gastrocnemius (S1) on the right and left 5/5 hamstring on the right and left She has subjective tingling paresthesias in her entire left arm but she is able to feel my palpitation in that area. (C4-T1) Sensation intact to light touch in Both lower extremities (L4-S1). Finger to nose and coordination normal. Gait normal. Skin: Skin is warm and dry. No rash noted. No pallor. Normal capillary refill. Psychiatric: Normal mood. Normal affect. Const: Vital Signs, click to edit/add: Vital Signs - 24 hr 10/16/23 13:42 10/16/23 13:47 10/16/23 13:55 Temperature 97.7 F Pulse Rate 45 L Pulse Rate [Femora l] 45 L Respiratory Rate 16 Blood Pressure Blood Pressure [Le ft Upper Arm] 172/91 H Pulse Oximetry 98 99 98 Oxygen Delivery Me thod Room Air 10/16/23 14:00 10/16/23 14:30 10/16/23 14:35 Temperature Pulse Rate 47 L 49 L 47 L Pulse Rate [Femora l] Respiratory Rate Blood Pressure Blood Pressure [Le ft Upper Arm] Pulse Oximetry 98 97 96 Oxygen Delivery Me thod 10/16/23 15:00 10/16/23 15:04 10/16/23 16:49 Temperature Pulse Rate 45 L 45 L 46 L Pulse Rate [Femora l] Respiratory Rate Blood Pressure Blood Pressure [Le ft Upper Arm] Pulse Oximetry 98 96 98 Oxygen Delivery Me thod 10/16/23 16:52 10/16/23 17:00 10/16/23 17:30 Temperature Pulse Rate 44 L 44 L 45 L Pulse Rate [Femora l] Respiratory Rate Blood Pressure 179/83 H Blood Pressure [Le ft Upper Arm] Pulse Oximetry 98 98 97 Oxygen Delivery Me thod 10/16/23 18:00 10/16/23 18:30 Temperature Pulse Rate 45 L 48 L Pulse Rate [Femora l] Respiratory Rate Blood Pressure Blood Pressure [Le ft Upper Arm] Pulse Oximetry 97 96 Oxygen Delivery Me thod Course Vital Signs Vital signs: Initial Vital Signs Temperature 97.7 F 10/16/23 13:42 Temperature Source Temporal Artery Scan 10/16/23 13:42 Pulse Rate 45 L 10/16/23 13:42 Respiratory Rate 16 10/16/23 13:42 Blood Pressure 172/91 H 10/16/23 13:42 Blood Pressure Mean 118 H 10/16/23 13:42 Blood Pressure Position Supine 10/16/23 13:42 Pulse Oximetry 98 10/16/23 13:42 Oxygen Delivery Method Room Air 10/16/23 13:42 Vital Signs Temperature 97.7 F 10/16/23 13:42 Pulse Rate 45 L 10/16/23 13:42 Respiratory Rate 16 10/16/23 13:42 Blood Pressure 172/91 H 10/16/23 13:42 Pulse Oximetry 98 10/16/23 13:42 Oxygen Delivery Method Room Air 10/16/23 13:42 Temperature 97.7 F 10/16/23 13:42 Pulse Rate 48 L 10/16/23 18:30 Respiratory Rate 16 10/16/23 13:42 Blood Pressure 179/83 H 10/16/23 16:52 Pulse Oximetry 96 10/16/23 18:30 Oxygen Delivery Method Room Air 10/16/23 13:42 Medical Decision Making MDM Narrative Medical decision making narrative: This is a very pleasant 83-year-old female who is generally very independent presenting to the ER today with symptoms ongoing for about the past week or perhaps a little bit longer. She has noted progressively worsening fatigue, dyspnea on exertion, and low energy with increased sleep. Along with that she has about a week-long history of some discomfort in her upper chest and tingling numb cold paresthesias affecting her tire left arm from the shoulder to the fingertips. No weakness in the left arm. Differential is broad. With her left arm numbness consider possible stroke, cervical radiculopathy. She is not having any neck pain and no dermatomal component to the numbness so doubt radiculopathy. Brain MRI is negative for any acute CVA. No AFib on her ekg monitor today. There is no evidence for any DVT or swelling in the arm. She has strong distal pulses normal cap refill so no evidence for acute limb ischemia. Although the arm subjectively feels cold her, temperature are symmetric between the right and left arm right and left leg. No evidence for any are acute arterial occlusion. With her chest discomfort consider possible CHF, acute coronary syndrome. Chest x-ray clear. No evidence for pulmonary edema, pneumonia, pneumothorax, pleural effusion. EKG shows sinus bradycardia but no ischemia. Troponin is negative. Given symptoms ongoing for several days I think a single troponin is sufficient to rule out NSTEMI. Consider possible PE. Age adjusted D-dimer is normal. She has no hypoxia or tachycardia so overall risk for PE is low. Would hold off on CT PA for now. We I do note that she has new sinus bradycardia with a rate consistently 50 or less. She is on atenolol, which was started last winter after she had some runs of SVT detected on her Zio patch. It looks like her baseline heart rate previously had been in the 60s. I suspect her new bradycardia may be contributing to overall fatigue, exercise intolerance, and other symptoms. Will have her temporarily hold her atenolol over the weekend. She will follow-up with primary care or come back to the ER on Thursday for repeat check and repeat vital signs. However precautions for return to the ER right away with any worsening symptoms carefully reviewed.. EKG interpretation Sinus bradycardia Rate: 45 CA: 178 QRS axis: Normal axis. No pathologic Q-waves. ST segment/T wave: No ST segment elevation or depression. Nonspecific T-wave flattening lead 1, aVL, V1, V2 QTc: 401 Lab Data Labs: Lab Results 10/16/23 10/16/23 Range/Units 13:54 14:05 WBC 5.50 (4.50-11.00) K/uL RBC 4.06 (4.00-5.20) m/uL Hgb 12.9 (12.0-16.0) gm/dL Hct 39.1 (33.0-51.0) % MCV 96 (80-100) fL MCH 32 (26-34) pg MCHC 33 (32-36) gm/dL RDW Coeff of Alejo 12.7 (11.5-15.5) % Plt Count 186 (140-440) K/uL Neut % (Auto) 56.8 (42.0-72.0) % Lymph % (Auto) 32.7 (20-44) % [place] % (Auto) 9.1 (0.0-11.0) % Eos % (Auto) 0.7 (0.0-7.0) % Baso % (Auto) 0.7 (0.0-3.0) % Neut # (Auto) 3.12 (1.7-7.0) K/uL Lymph # (Auto) 1.80 (0.90-2.90) K/uL [place] # (Auto) 0.50 (0.00-0.90) K/UL Eos # (Auto) 0.04 (0.00-0.50) K/uL Baso # (Auto) 0.04 (0.00-0.30) K/uL Abs Immat Gran (auto) 0.00 (0.00-0.30) K/uL Imm/Tot Granulo (auto) 0.0 % D-Dimer Quant (PE/DVT) 0.53 H (0.00-0.50) ug/ml Sodium 139 (135-149) mmol/L Potassium 4.4 (3.6-5.1) mmol/L Chloride 105 (96-114) mmol/L Carbon Dioxide 30 (20-32) mmol/L Anion Gap 4 L (7-15) mEq/L BUN 12 (7-30) mg/dL Creatinine 0.6 (0.5-1.5) mg/dL Estimated GFR 88 ml/min Glucose 89 (60-115) mg/dL Calcium 9.2 (8.4-10.6) mg/dL TSH 1.030 (0.270-4.200) uIU/mL POC Troponin I 0.00 L (0.01-0.04) ng/ml Imaging Data Chest x-ray: Attestation: I have reviewed the pertinent imaging results. Radiologist's impression: IMPRESSION: No acute or significant findings. MRI brain: Attestation: I have reviewed the pertinent imaging results. Radiologist's impression: Impression: 1. No acute intracranial process. 2. Mild chronic ischemic microvascular disease. 3. Small chronic left cerebellar infarct. Discharge Plan Discharge Clinical Impression: Bradycardia, sinus, Weakness, Arm paresthesia, left Patient Disposition: Home, Self-Care Condition: Stable Instructions: Paresthesia (ED), Bradycardia (ED), Weakness (ED) Additional Instructions: As we discussed, so far your workup looks reassuring. I suspect that your symptoms are being caused by your slow heart rate. I suspect that your slow heart rate is a side effect of your blood pressure medication atenolol. Please stop atenolol until you can recheck with your doctor. Check your vital signs and blood pressure and pulse once per day if you have a blood pressure cuff. Please recheck with your regular doctor on Thursday (after the hol) or come back to the ER for a recheck of your pulse and blood pressure. I suspect that after you stop the medication your heart rate will get higher and you will feel stronger. If you have any worsening symptoms, worsening trouble breathing, weakness, worsening chest pain, or worsening numbness in your body, weakness of your left arm, or any problems, come back to the ER right away per Prescriptions: No Action atorvastatin 20 mg tablet 20 mg PO QPM lisinopril 40 mg tablet 40 mg PO DAILY atenolol 25 mg tablet 25 mg PO DAILY hydroxyzine HCl 25 mg tablet 25 - 50 mg PO TID PRN (Reason: anxiety) Qty: 30 0RF Follow Up/Referrals: Sharron Cantu PA-C [Primary Care Provider] - Stand Alone Forms: [facility] Medical Info Instructions
[2023-10-16 14:04] LABS: Basophils Absolute Auto 0.04 K/uL (0.00-0.30); Basophils Percent Auto 0.7 % (0.0-3.0); Eosinophils Absolute Auto 0.04 K/uL (0.00-0.50); Eosinophils Percent Auto 0.7 % (0.0-7.0); Hematocrit 39.1 % (33.0-51.0); Hemoglobin* 12.9 gm/dL (12.0-16.0); Lymphocytes Percent Auto 32.7 % (20-44); Mean Corpuscular HGB Conc 33 gm/dL (32-36); Mean Corpuscular Hemoglobin 32 pg (26-34); Mean Corpuscular Volume 96 fL (80-100); Monocytes Percent Auto 9.1 % (0.0-11.0); Neutrophils Absolute Auto 3.12 K/uL (1.7-7.0); Neutrophils Percent Auto 56.8 % (42.0-72.0); Platelet Count* 186 K/uL (140-440); RDW Coefficient of Variation % 12.7 % (11.5-15.5); Red Blood Count 4.06 m/uL (4.00-5.20)
[2023-10-16 14:15] LABS: Slide Review Reflex No
--- NOTE | 2023-10-16 14:20 | CRLHL7_ITS ---
For Patients: As a result of the Century Cures Act, medical imaging exams and procedure reports are released immediately into your electronic medical record. You may view this report before your referring provider. If you have questions, please contact your health care provider. Indication: Left arm tingling. Technique: Multiplanar, multisequence MRI of the brain was performed without intravenous contrast. Comparison: None relevant available. Findings: Slight thinning of the corpus callosum. Partly empty sella morphology. Clivus is intact. Moderate degenerative change visualized upper cervical spine. There is no restricted diffusion. No intracranial hemorrhage. The ventricles are proportionate to the cerebral sulci. The 4th ventricle appears midline. The basal cisterns appear patent. No abnormal extra-axial fluid collection identified. Mild parenchymal volume loss. Mild scattered T2 FLAIR hyperintense foci within the subcortical and periventricular white matter, favored to represent chronic ischemic microvascular disease. Small chronic left cerebellar infarct. There is no intracranial mass, abnormal mass-effect or midline shift identified. Major intracranial vascular flow voids appear grossly intact. Both globes are preserved. Impression: 1. No acute intracranial process. 2. Mild chronic ischemic microvascular disease. 3. Small chronic left cerebellar infarct. Dictated by Mario Mcgraw MD @ 10/16/2023 5:31:05 PM (Electronically Signed)
[2023-10-16 14:29] LABS: Chloride* 105 mmol/L (96-114); Potassium* 4.4 mmol/L (3.6-5.1); Sodium* 139 mmol/L (135-149)
[2023-10-16 14:31] LABS: Creatinine* 0.6 mg/dL (0.5-1.5); Estimated Glomerular Filt Rate 88 ml/min
[2023-10-16 14:32] LABS: Anion Gap 4 mEq/L (7-15); Blood Urea Nitrogen* 12 mg/dL (7-30); Calcium* 9.2 mg/dL (8.4-10.6); Carbon Dioxide* 30 mmol/L (20-32); Glucose* 89 mg/dL (60-115)
[2023-10-16 14:38] LABS: D Dimer Quantitative* 0.53 ug/ml (0.00-0.50)
--- NOTE | 2023-10-16 15:07 | CRLHL7_ITS ---
For Patients: As a result of the Century Cures Act, medical imaging exams and procedure reports are released immediately into your electronic medical record. You may view this report before your referring provider. If you have questions, please contact your health care provider. INDICATION: Chest pain. TECHNIQUE: Chest 2 views. COMPARISON: None. FINDINGS: Cardiovascular and mediastinum: Heart size is normal. Unremarkable mediastinum. Lungs and pleural spaces: Lungs are clear. No sign of infiltrate or mass. No sign of pleural effusion. No pneumothorax. Bones and soft tissues: Left chest wall loop recorder. DISH. IMPRESSION: No acute or significant findings. Dictated by Rosie Patel MD @ 10/16/2023 3:57:58 PM (Electronically Signed)
== END 2023-10-16 18:56 | disposition home or self-care (01) ==
PROVIDERS: Emergency Provider Emergency Medicine; PCP Physician Assistant
DX: R00.1 Bradycardia, unspecified (principal); R53.1 Weakness; R20.2 Paresthesia of skin
CPT/HCPCS: 36415; 70551; 71046; 80048; 84443; 84484; 85025; 85379; 93005; 94761; 99284; 99285

== ENCOUNTER 2024-02-02 03:35 | Emergency (ER) | payer MEDICARE, OTHER, SELFPAY ==
[2024-02-02 04:01] VITALS: BP 123/76; PULSE 49; RESP 16; TEMP 36.1; O2SAT 98; BMI 34.0
--- NOTE | 2024-02-02 04:21 | ED_ITS ---
HPI - General Adult General Chief complaint: Dizziness/Vertigo Stated complaint: vomiting, feels disoriented Time Seen by Provider: 02/02/24 03:42 Source: patient and family Mode of arrival: ambulatory Limitations: no limitations History of Present Illness HPI narrative: 83-year-old female who lives independently presents to the emergency department for evaluation of nausea and dizziness. Patient reports that she woke with abdominal pain, achy in nature in the epigastric region accompanied by feeling of nausea at 1:45 a.m. this morning which is about 2 hours prior to arrival. Pain does not radiate. Went to bed normally at 9:00 p.m., ate and drink normally through the day. No sick contacts. Did have some leftovers from a family member yesterday that had an unusual spice in it but did not seem poorly prepared. No fever, no body aches or chills. No diarrhea. Awoke with the discomfort and nausea and got up to urinate to see if this would improve her symptoms. When she stood up after urinating, she felt lightheaded. It was not like a vertigo type of dizziness. She said that she has fainted in the past and is familiar with presyncopal type feelings. She quickly got herself back to bed and laid down and symptoms did improve quite a bit but she still feels unwell and weak. No focal neurological changes, no vertigo type symptoms, no headache. No shortness of breath or chest pain. Reports that to her beta-steph was recently stopped due to low heart rate. Heart rate still seems to be running low. Does have a history of GI bleed in the past but has not noticed any acute symptoms. No dysuria, no pertinent travel, no recent fall, trauma or injury. Does not take any anticoagulants. Past medical history notable for prior GI bleed, hypertension, hyperlipidemia. Home meds are atorvastatin lisinopril and p.r.n. hydroxyzine for anxiety. Nonsmoker. ROS is notable for the generalized and GI symptoms only, otherwise denies times 12 systems. Related Data Home Medications ?Medication ?Instructions ?Recorded ?Confirmed atorvastatin 20 mg tablet 20 mg PO QPM 05/21/22 10/16/23 lisinopril 40 mg tablet 40 mg PO DAILY 05/21/22 10/16/23 atenolol 25 mg tablet 25 mg PO DAILY 04/27/23 10/16/23 Previous Rx's ?Medication ?Instructions ?Recorded hydroxyzine HCl 25 mg tablet 25 - 50 mg (1 - 2 x 25 mg) PO TID 04/27/23 PRN anxiety #30 tabs ondansetron 4 mg disintegrating 4 mg PO Q6H #10 tabs 02/02/24 tablet Allergies Allergy/AdvReac Type Severity Reaction Status Date / Time cat dander Allergy Unknown Verified 02/21/23 14:17 PFSH PFSH Social History Smoking Status: Never smoker Do you use any of these nicotine containing products: None Second hand tobacco smoke exposure: No How often do you have a drink containing alcohol: never AUDIT-C Alcohol total score: 0 Non-prescribed substance use: denies use service: No Exam Const: Vital Signs, click to edit/add: Vital Signs - 24 hr 02/02/24 04:01 Temperature 97.0 F L Pulse Rate [Right Pulse Oximeter] 49 L Respiratory Rate 16 Blood Pressure [Le ft Upper Arm] 123/76 Pulse Oximetry 98 Oxygen Delivery Me thod Room Air Documenting provider has reviewed patient's vital signs: yes Common normals: no apparent distress and alert General appearance: cooperative, com fortable and well kempt HENMT: Common normals: normocephalic Head and scalp: normocephalic Face and sinus: normal facial exam Mouth: oral and palatal mucosa normal Throat: posterior oropharynx normal Eye: Common normals: PERRL and conjunctivae normal General eye: normal appearance of both eyes Conjunctiva: conjunctiva(e) normal Pupil: PERRL Neck & C-Spine: Common normals: no lymphadenopathy General: normal visual inspection Resp: Common normals: normal respiratory effort, no use of accessory muscles and clear to auscultation bilaterally Effort & inspection: able to speak in complete sentences Auscultation: clear to auscultation bilaterally Cardio: Common normals: regular rate, regular rhythm, S1 normal heart sound, S2 normal heart sound and no murmurs Rate: regular rate Rhythm: regular rhythm Heart sounds: S1 normal and S2 normal GI: Common normals: Normal to inspection, nondistended, normoactive bowel sounds present, soft to palpation, non-tender, no hepatosplenomegaly and no masses Palpation: soft and no hepatosplenomegaly Extremity: Common normals: normal to inspection, normal capillary refill and no pedal edema Neuro: Sensorium/orientation: alert Speech: speech normal Motor exam: no movement abnormalities noted Psych: Appearance: well kempt Attitude: engaged Activity/motor behavior: appropriate eye contact Attention/concentration: attention grossly intact Memory/cognition: memory grossly intact Insight: insight good Judgement: judgment good Skin: Common normals: no rashes or lesions noted General skin exam: no rashes or lesions noted Course Course ED Course: 83-year-old female with lightheadedness and nausea suspicious for gastroenteritis. Differential diagnosis also includes cardiac arrhythmia, urinary tract infection, dehydration, electrolyte abnormality, symptomatic anemia, amongst others. Does have risk factors for heart disease. Will place IV, give a 0.5 L of normal saline, 4 mg of Zofran. Cardiac workup to include basic metabolic panel, liver enzymes, troponin, urinalysis, CRP, lipase level, CBC. Risk factors for anemia due to prior GI bleed. EKG. Await findings. Reevaluation(s) Time of Reevaluation #1: 07:04 Reevaluation #1: Patient feeling much better after Zofran and fluids. Suspect gastroenteritis. Labs are very reassuring. She ambulated to the bathroom with no difficulty. Urinalysis is not suspicious for worry either. Patient counseled on findings. Consider reducing lisinopril by half for the next couple of days until she is feeling better. Prescription for Zofran provided. Indications for ED follow-up and alarm symptoms reviewed. Written instructions provided. Vital Signs Vital signs: Initial Vital Signs Temperature 97.0 F L 02/02/24 04:01 Temperature Source Temporal Artery Scan 02/02/24 04:01 Pulse Rate 49 L 02/02/24 04:01 Respiratory Rate 16 02/02/24 04:01 Blood Pressure 123/76 02/02/24 04:01 Blood Pressure Mean 91 02/02/24 04:01 Blood Pressure Position Semi-Fowlers 02/02/24 04:01 Pulse Oximetry 98 02/02/24 04:01 Oxygen Delivery Method Room Air 02/02/24 04:01 Vital Signs Temperature 97.0 F L 02/02/24 04:01 Pulse Rate 49 L 02/02/24 04:01 Respiratory Rate 16 02/02/24 04:01 Blood Pressure 123/76 02/02/24 04:01 Pulse Oximetry 98 02/02/24 04:01 Oxygen Delivery Method Room Air 02/02/24 04:01 Temperature 97.0 F L 02/02/24 04:01 Pulse Rate 49 L 02/02/24 04:01 Respiratory Rate 16 02/02/24 04:01 Blood Pressure 123/76 02/02/24 04:01 Pulse Oximetry 98 02/02/24 04:01 Oxygen Delivery Method Room Air 02/02/24 04:01 Medications Administered Medications: Discontinued Medications Generic Name Dose Route Start Last Admin Trade Name Freq PRN Reason Stop Dose Admin Sodium Chloride 500 mls @ 500 mls/hr 02/02/24 04:19 02/02/24 05:03 0.9 % Sodium Chloride 500 Ml IV 02/02/24 05:18 500 mls/hr .Q1H ONE Administration Ondansetron HCl 4 mg 02/02/24 04:19 02/02/24 05:04 Ondansetron 2 Mg/Ml Inj IVP 02/02/24 04:20 4 mg ONCE ONE Administration Medical Decision Making Lab Data Lab results reviewed: Yes I reviewed the patient's lab results Lab results narrative: Labs very reassuring. Labs: Lab Results 02/02/24 02/02/24 02/02/24 Range/Units 04:40 05:01 06:05 Sodium 135 (135-149) mmol/L Potassium 3.9 (3.6-5.1) mmol/L Chloride 99 (96-114) mmol/L Carbon Dioxide 28 (20-32) mmol/L Anion Gap 8 (7-15) mEq/L BUN 17 (7-30) mg/dL Creatinine 0.7 (0.5-1.5) mg/dL Estimated Creat Clear 32.53 Estimated GFR 85 ml/min Glucose 122 H (60-115) mg/dL Calcium 9.2 (8.4-10.6) mg/dL Total Bilirubin 1.5 (0.1-1.5) mg/dL AST 29 (12-35) U/L ALT 25 (4-35) U/L Alkaline Phosphatase 70 (40-150) U/L Troponin I < 0.01 L (0.01-0.04) ng/mL C-Reactive Protein < 0.5 L (0.5-1.0) mg/dL Total Protein 6.8 (6.0-8.3) g/dL Albumin 4.4 (3.3-5.0) g/dL Lipase 152 (23-300) U/L Urine Color (Yellow) Urine Appearance (Clear) Urine pH (5.0-8.5) Ur Specific [place] (1.000-1.030) Urine Protein (Negative) Urine Glucose (UA) (Negative) Urine Ketones (Negative) Urine Blood (Negative) Urine Nitrite (Negative) Urine Bilirubin (Negative) Urine Urobilinogen (0.2-1.0) Ur Leukocyte Esterase (Negative) Urine RBC (0-2) Urine WBC (0-5) Ur Squamous Epith Cells (None-Few) Amorphous Sediment (None) Urine Bacteria (None) Coarse Granular Casts (None) SARS-CoV-2 (PCR) Negative SARS-CoV-2 (Negative) Influenza Type A (PCR) Negative PCR FLU A (Negative) Influenza Type B (PCR) Negative PCR FLU B (Negative) RSV (PCR) Negative PCR RSV (Negative) Lab Acknowledgement Test Added 02/02/24 Range/Units 06:35 Sodium (135-149) mmol/L Potassium (3.6-5.1) mmol/L Chloride (96-114) mmol/L Carbon Dioxide (20-32) mmol/L Anion Gap (7-15) mEq/L BUN (7-30) mg/dL Creatinine (0.5-1.5) mg/dL Estimated Creat Clear Estimated GFR ml/min Glucose (60-115) mg/dL Calcium (8.4-10.6) mg/dL Total Bilirubin (0.1-1.5) mg/dL AST (12-35) U/L ALT (4-35) U/L Alkaline Phosphatase (40-150) U/L Troponin I (0.01-0.04) ng/mL C-Reactive Protein (0.5-1.0) mg/dL Total Protein (6.0-8.3) g/dL Albumin (3.3-5.0) g/dL Lipase (23-300) U/L Urine Color Yellow (Yellow) Urine Appearance Clear (Clear) Urine pH 7.0 (5.0-8.5) Ur Specific [place] 1.020 (1.000-1.030) Urine Protein Trace A (Negative) Urine Glucose (UA) Negative (Negative) Urine Ketones Negative (Negative) Urine Blood Negative (Negative) Urine Nitrite Negative (Negative) Urine Bilirubin Negative (Negative) Urine Urobilinogen 0.2 (0.2-1.0) Ur Leukocyte Esterase 1+ A (Negative) Urine RBC 0-2 (0-2) Urine WBC 2-5 (0-5) Ur Squamous Epith Cells Few (None-Few) Amorphous Sediment Many A (None) Urine Bacteria None (None) Coarse Granular Casts Moderate A (None) SARS-CoV-2 (PCR) (Negative) Influenza Type A (PCR) (Negative) Influenza Type B (PCR) (Negative) RSV (PCR) (Negative) Lab Acknowledgement ECG Data Attestation: I personally reviewed and interpreted this ECG as follows: Prior ECG tracings: available for review Interpretation: Comparison EKG 10/16/2023. Identical. Sinus bradycardia rate of 50. Other than first-degree heart block, no other significant ST or T-wave abnormalities. Otherwise normal intervals and axis. No ischemic changes Discharge Plan Discharge Clinical Impression: Gastroenteritis Patient Disposition: Home w/ Parent or Adult Condition: Improved Instructions: Gastroenteritis (DC) Additional Instructions: As we discussed, I suspect your symptoms are from a combination of gastroenteritis which is the stomach flu with some additional dizziness as a side effect of your lisinopril. It is common when people get stomach flu symptoms further symptoms to be amplified because of the lisinopril. Your more likely to get dizziness, lightheadedness and other similar symptoms. He also tend to run a lower pulse which will also amplify your symptoms. It is important you drink plenty of fluids today. Consider taking half a dose of your lisinopril for the next couple of days. I have given you a prescription for ondansetron, also known as Zofran which is an anti nausea medication. It is also safe for you to use [id number] Imodium if you do get diarrhea as well. Your labs look good. There are no other signs of major abnormalities. If her symptoms do not improve within the next 4 days, I would recommend re- evaluation. Come to the ED sooner if you have severe abdominal pain, high fevers, bloody stools, bloody vomit or other emergent type symptoms. Activity Level: No Restrictions Discharge Diet: Regular Prescriptions: New ondansetron 4 mg tablet,disintegrating 4 mg PO Q6H Qty: 10 0RF No Action atorvastatin 20 mg tablet 20 mg PO QPM lisinopril 40 mg tablet 40 mg PO DAILY atenolol 25 mg tablet 25 mg PO DAILY hydroxyzine HCl 25 mg tablet 25 - 50 mg PO TID PRN (Reason: anxiety) Qty: 30 0RF Follow Up/Referrals: Sharron Cantu PA-C [Primary Care Provider] - Stand Alone Forms: [facility] Info Instructions
[2024-02-02] MEDS: 0.9 % SODIUM CHLORIDE 500 ML 500 ML IV (05:03)
[2024-02-02] MEDS: ONDANSETRON 2 MG/ML inj 4 MG IVP (05:04)
[2024-02-02 05:16] LABS: Albumin* 4.4 g/dL (3.3-5.0); Chloride* 99 mmol/L (96-114); Potassium* 3.9 mmol/L (3.6-5.1); Sodium* 135 mmol/L (135-149)
[2024-02-02 05:18] LABS: Bilirubin Total* 1.5 mg/dL (0.1-1.5); Creatinine* 0.7 mg/dL (0.5-1.5); Est. Creatinine Clearance* 32.53; Estimated Glomerular Filt Rate 85 ml/min
[2024-02-02 05:19] LABS: Alanine Aminotransferase* 25 U/L (4-35); Alkaline Phosphatase* 70 U/L (40-150); Anion Gap 8 mEq/L (7-15); Aspartate Amino Transferase* 29 U/L (12-35); Blood Urea Nitrogen* 17 mg/dL (7-30); Carbon Dioxide* 28 mmol/L (20-32); Glucose* 122 mg/dL (60-115); Lipase* 152 U/L (23-300); Total Protein* 6.8 g/dL (6.0-8.3)
[2024-02-02 05:20] LABS: Calcium* 9.2 mg/dL (8.4-10.6)
[2024-02-02 05:23] LABS: C Reactive Protein* < 0.5 mg/dL (0.5-1.0)
[2024-02-02 05:39] LABS: Troponin I* < 0.01 ng/mL (0.01-0.04)
[2024-02-02 05:43] LABS: PCR FLU A Negative PCR FLU A (Negative); PCR FLU B Negative PCR FLU B (Negative); PCR RSV Negative PCR RSV (Negative); SARS PCR* Negative SARS-CoV-2 (Negative)
[2024-02-02 06:44] LABS: Appearance Urine Clear (Clear); Bilirubin Urine Negative (Negative); Blood Urine Negative (Negative); Color Urine Yellow (Yellow); Glucose Urine Negative (Negative); Ketones Urine Negative (Negative); Leukocyte Esterase Urine 1+ (Negative); Nitrite Urine Negative (Negative); Protein Urine Trace (Negative); Urobilinogen Urine 0.2 (0.2-1.0)
[2024-02-02 07:02] LABS: Amorphous Sediment Urine Many; RBC Urine 0-2 (0-2); Squamous Epithelial Cell Urine Few (None-Few)
[2024-02-02 07:03] LABS: Coarse Granular Casts Urine Moderate
[2024-02-02 07:08] LABS: Basophils Absolute Auto 0.07 K/uL (0.00-0.30); Basophils Percent Auto 0.7 % (0.0-3.0); Eosinophils Absolute Auto 0.12 K/uL (0.00-0.50); Eosinophils Percent Auto 1.2 % (0.0-7.0); Hematocrit 40.8 % (33.0-51.0); Hemoglobin* 13.3 gm/dL (12.0-16.0); Immature Granulocytes Abs Auto 0.02 K/uL (0.00-0.30); Immature Granulocytes Pct Auto 0.2 %; Lymphocytes Percent Auto 13.7 % (20-44); Mean Corpuscular HGB Conc 33 gm/dL (32-36); Mean Corpuscular Hemoglobin 32 pg (26-34); Mean Corpuscular Volume 97 fL (80-100); Neutrophils Percent Auto 77.2 % (42.0-72.0); Platelet Count* 212 K/uL (140-440); RDW Coefficient of Variation % 12.4 % (11.5-15.5); Red Blood Count 4.19 m/uL (4.00-5.20); White Blood Count* 10.41 K/uL (4.50-11.00)
[2024-02-02 07:11] LABS: Slide Review Reflex No
== END 2024-02-02 07:35 | disposition home or self-care (01) ==
PROVIDERS: Emergency Provider Family Medicine; PCP Physician Assistant
DX: K52.9 Noninfective gastroenteritis and colitis, unspecified (principal); R82.90 Unspecified abnormal findings in urine
CPT/HCPCS: 36415; 80053; 81001; 83690; 84484; 85025; 86140; 87086; 87631; 93005; 96374; 99284; J2405; J7030

== ENCOUNTER 2024-07-28 18:24 | Emergency (ER) | payer MEDICARE, OTHER, SELFPAY ==
--- OUTSIDE RECORDS SUMMARY | 2018-10-19 05:55 | XMS_ITS | Continuity of Care Document ---
Author Organization [facility] Address [address] [address] [place] [address] Phone Care Team Providers Care Equipment Or Machinery Cleaner Name Role Phone Baldemar Ramirez MD Unavailable [...] Diagnoses Date Provider Providers Copied on Encounter [facility], [address] [address], [place], [id number], [place] tel:[phone] [facility] No Information 9 James Mcdermott. [address] [place] [address], [id number], [place]. tel:[phone] Subsqt Hosp-da E&m Stable 15 M [facility], [address] [address], [place], [id number], [place] tel:[phone] [facility] No Information 9 No Information [facility], [address] [address], [place], [id number], [place] tel:[phone] [facility] Gastric ulcer, unspecified chronicity, unspecified whether gastric ulcer hemorrhage or perforation present 9 Marquis Gonzalez. [address] [place] [address], [id number], [place]. tel:[phone] Init Hosp-da E&m Mod Severity [place] [facility], [address] [address], [place], [place], [id number], [place] tel:[phone] [facility] No Information Marquis Gonzalez. [address] [place] [address], [facility] [address], [place], [place], [id number], [place]. tel:[phone] Referring Provider: Lisa Hines, [address] [place] [address] [address], [place], [address] . tel:[phone] Family History Family Member Type Diagnosis Age At Onset No Information Payers Payer name Insurance type Covered green party ID Authoriza tion(s) No Information Social History [...]
--- OUTSIDE RECORDS SUMMARY | 2018-10-19 05:55 | XMS_ITS | Continuity of Care Document ---
Author Organization [facility] Address [address] [address] [place] [address] Phone Care Team Providers Care Meat And Seafood Manager Name Role Phone Baldemar Ramirez MD Unavailable [...] Diagnoses Date Provider Providers Copied on Encounter [facility], [address] [address], [place], [id number], [place] tel:[phone] [facility] No Information 9 James Mcdermott. [address] [place] [address], [id number], [place]. tel:[phone] Subsqt Hosp-da E&m Stable 15 M [facility], [address] [address], [place], [id number], [place] tel:[phone] [facility] No Information 9 No Information [facility], [address] [address], [place], [id number], [place] tel:[phone] [facility] Gastric ulcer, unspecified chronicity, unspecified whether gastric ulcer hemorrhage or perforation present 9 Marquis Gonzalez. [address] [place] [address], [id number], [place]. tel:[phone] Init Hosp-da E&m Mod Severity [place] [facility], [address] [address], [place], [place], [id number], [place] tel:[phone] [facility] No Information Marquis Gonzalez. [address] [place] [address], [facility] [address], [place], [place], [id number], [place]. tel:[phone] Referring Provider: Lisa Hines, [address] [place] [address] [address], [place], [address] . tel:[phone] Family History Family Member Type Diagnosis Age At Onset No Information Payers Payer name Insurance type Covered constitution party ID Authoriza tion(s) No Information Social [...]
--- OUTSIDE RECORDS SUMMARY | 2024-07-28 18:28 | XMS_ITS | Clinical Summary ---
Author Organization [facility] Address [address] [place] [id number] Care Team Providers Care Customer Service Coordinator Name Role Phone Sharron Cantu Primary Care Provider [phone] Allergies Active Allergy Reactions Criticality Noted Date Comments Cat Dander Edema 05/23/2021 Eyes itch and swell Medications multivitamin (MVI) tablet Take 1 tablet by mouth once daily. 0 01/30/20 10 Active ketoconazole 2% topical (NIZORAL) cream Apply topically to affected area(s) once daily if needed. Apply to face Active vitamin B complex (B-COMPLEX VITAMIN) tabletIndications: Acute gastric ulcer with hemorrhage Take 1 tablet by mouth once daily. 0 11/17/19 19 Active acetaminophen (TYLENOL EXTRA STRGTH) 500 mg tablet Take 1 Tablet (500 mg) by mouth every 6 hours if needed. Max acetaminophen dose: 4000mg in 24 hrs. 0 09/28/19 22 Active cetirizine (ZYRTEC) 10 mg tablet Take 1 Tablet (10 mg) by mouth once daily. 0 05/30/19 23 Active metroNIDAZOLE 0.75 % cream APPLY THIN LAYER TO AFFECTED AREA ON FACE TWICE A DAY 05/03/19 23 Active melatonin 5 mg capsule Take 1 Capsule (5 mg) by mouth. 0 05/30/19 23 Active ascorbic acid, vitamin C, (Vitamin C) 500 mg tablet Take 1 Tablet (500 mg) by mouth once daily. 10/26/19 24 Active aspirin (ECOTRIN) 81 mg enteric coated tabletIndications: Cerebral microvascular disease Take 1 Tablet (81 mg) by mouth once daily with a meal. 90 Tablet 3 10/26/19 24 Active hydroCHLOROthiazid e 12.5 mg tabletIndications: Hypertension Take 1 Tablet (12.5 mg) by mouth once daily. 90 Tablet 3 11/19/19 24 Active calcium/magnesium/ zinc (Calcium-Magnesuiu m-Zinc) 333-133-5 mg tablet Take 1 Tablet by mouth. 02/16/20 24 Active Apple Cider Vinegar 600 mg cap Take by mouth. 0 24 Active lactobacillus rhamnosus, GG, (Culturelle) 10 billion cell capsule Take 1 Capsule by mouth once daily. 02/16/20 24 Active lisinopriL (PRINIVIL; ZESTRIL) 20 mg tabletIndications: HTN (hypertension) Take 1 Tablet (20 mg) by mouth once daily. 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 Acute upper gastrointestinal hemorrhage 08/08/19 23 Health care directive on file 03/19/2021 Vagal reaction 10/03/2018 Melena 10/01/2018 Helicobacter pylori gastrointestinal tract infec tion 10/01/2018 Mixed hyperlipidemia 01/29/2010 Benign neoplasm of colon 03/09/2009 Overview (09/19/2021): Colonoscopy 02/2009 polyp repeat in 5 years Colonoscopy 05/2014 polyps repeat in 5 years Colonoscopy 09/2021 hyperplastic polyps, no follow up needed Hypertension 06/22/2006 Osteoarthrosis, unspecified whether generalized or localized, unspecified site 06/22/2006 Gastric ulcer, unspecified a s acute or chronic, without mention of hemorrhage, perforation, or obstruction 06/22/2006 Overview (01/25/2019): 09/2018 large gastric ulcer EGD 01/2019 healed ulcer Encounters Date Type Department Care Team Description 07/21/2024 9:50 AM CDT Office Visit [facility] [address], [place] [id number] Sharron Cantu PA Blood Pressure (Recheck-BP still bounces all over) 07/21/2024 Travel 07/07/2024 8:35 AM CDT Office Visit [facility] [address] [place] [address] Kathy Davis PA Blood Pressure; Ear Problem 07/07/2024 Travel 07/07/2024 Nurse Triage [facility] [address] [place] [address] Sharron Cantu PA High Blood Pressure; Ear Problem from Last 3 Months Immunizations Immunization Administration Dates Next Due Amb Influenza, Inact (High-d ose) (Flu Clinic Only) 11/28/2015 COVID-19 vaccine ([employer] NTech 30mcg/0.3mL) 12YO+ MISAEL-SUCROSE PF, MDV 06/10/2021 COVID-19 vaccine ([employer] NTech 30mcg/0.3mL) PF, MDV 11/19/2020,04/24/2020,04/03/2020 Influenza, High-dose Inactivated 024,11/02/2016,10/26/2016,11/27,11/22/2014,11/02/2013 Influenza, High-dose Quadriv alent Inactivated 10/24/2022,11/01/2021,10/26/2020,10/09 Influenza, IIV3 (Age 6-35 mos) 11/24/2010,2009 Influenza, IIV3 (Age >=3 years) 10/21/19 13,11/24/2010,11/01/2009,11/30,11/19/2005,11/28/2003,12/19/2002 Influenza, Inactivated IIV3 (Age 65+ Years) Preserv Free 11/02/2018,10/15/2017 Pneumococcal Poly,23-Valent (Pneumovax) 10/10/2019,10/16/2005 Pneumococcal conj 13-Valent (Prevnar 13) 05/10/2014 RSV, Recombinant ADJ Reconst ituted (Arexvy 120MCG/0.5mL) 01/13/2023 Td (Age >=7 Years) 03/11/2000 Tdap 05/23/2021,01/30/2011 Zoster (Shingrix-RZV, recombinant) 08/03/2019, Zoster (Zostavax-ZVL, live) 05/17/2010 Family History Medical History Relation Name Comments Heart failure Brother No Known Problems Daughter 1 Stefanie Hamilton Stroke Daughter 2 Leola Heart Disease Father CHF Other Father GLAUCOMA Cancer-breast Maternal Grandmother Other Mother COPD Stroke Mother Cancer Son 1 testicular ca 2002 No Known Problems Son 2 Pedro Relation Name Status Comments Brother Daughter 1 Tiffany Alive Daughter 2 Leola Father Maternal Grandmother Mother Son 1 testicular ca Son 2 Pedro Alive Social History Tobacco Use Types Packs/Day Years Used Date Smoking Tobacco: Never Smokeless Tobacco: Never Tobacco Cessation:Counseling Given: Yes Alcohol Use Standard Drinks/Week Comments Yes 7 (1 standard drink = 0.6 oz pur e alcohol) moderate PHQ-2 Answer Date Recorded PHQ-2 TOTAL SCORE 0 11/19/2023 Social Connections Answer Date Recorded Do you often feel lonely or isolated from those around you? 0 07/07/2024 Financial Resource Strain Answer Date R ecorded Difficulty of Paying Living Expenses 3 07/07/2024 Difficulty of Paying Living Expenses Not on file 07/07/2024 Food Insecurity Answer Date Recorded Do you worry your food will run out before you are able to buy more? 1 07/07/2024 Transportation Needs Answer Date Record ed Does lack of transportation keep you from medica l appointments? 1 07/07/2024 Does lack of transportation keep you from work, meetings or getting things that you need? 1 07/07/2024 Housing Stability Answer Date Recorded What is your housing situation today? 1 07/07/2024 Utilities Answer Date Recorded Do you have trouble paying f or utilities (for example, heat, electricity, water, phone)? 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 Not on file Not on file N ot on file Obstetrics History Para Term AB IAB SAB Ectopic Multiple Livin g Live Births 5 4 4 1 1 Date Outcome GA Total Labor Labor/2nd/3rd Weight Sex Type Anes PTL Sonali A1 A5 Name Clin SAB Term Term Term Term Last Filed Vital Signs Vital Sign Reading Time Taken Comments Blood Pressure 135/84 07/21/2024 9:52 AM CDT Pulse 65 07/21/2024 9:52 AM CDT Temperature 36.8 C (98.2 F) 05/29/2022 2:24 PM CDT Respiratory Rate 18 08/18/2019 9:31 AM CDT Oxygen Saturation 98% 07/21/2024 9:52 AM CDT Inhaled Oxygen Concentration - - Weight 84.8 kg (187 lb) 07/21/2024 9:52 AM CDT Height 157.9 cm (5' 2.17) 12/11/2023 2:50 PM CD T Body Mass Index 34.02 12/11/2023 2:50 PM CDT Plan of Treatment Upcoming Encounters Date Type Department Care Team (Late st Contact Info) Description 11/14/2024 11:30 AM CDT Office Visit [facility] [address] [place] [address] James Bernstein MD [address] [place] [address] Health Maintenance Due Date Last Done Comments Depression screening for age 12+ 11/18/2024 11/19/2023, 08/21/2022, 07/22/2021, Additional history exists Medicare Wellness for age 65+ 11/19/2024 11/19/2023, 08/21/2022, 07/19/2021, Additional history exists BMI (ht and wt on same day) for age 18+ 12/10/2024 12/11/2023, 11/19/2023, 08/21/2022, Additional history exists Tetanus booster 05/24/2031 05/23/2021, 01/16, 01/30/2011 (Declined), Additional history exists DEXA/DXA scan for age 65+ Completed 05/14/2017, Zoster (shingles) series for age 50+ Completed 08/03/2019, 04/25/2019, 05/17/2010 Pneumococcal series for age 50+ Completed 10/10/2019, 05/10/2014, 10/16/2005 Tdap Completed 05/23/2021, 01/30/2011 RSV vaccine for adults or Completed 01/13/2023 Influenza Vaccine Completed 11/03/2023, , 10/15/2017, Additional history exists COVID-19 vaccine series Completed 07/08/19, 11/12/2023, 01/01/2023, Additional history exists Hepatitis B series for 19+ Aged Out N o longer eligible based on patient's age to complete this topic Procedures Procedure Name Priority Date/Time Associated Diagnosis Comments XR DXA BONE DENSITY 2 SITES AXIAL Routine 05/14/2017 9:29 AM CDT Menopausal and perimenopausal disorder Osteopenia, unspecified location from Last 3 Months or Most Recently Relevant to Health Maintenance Results * XR DXA BONE DENSITY 2 SITES AXIAL (05/14/2017 9:29 AM CDT) Anatomical Region Laterality Modality Spine, HIPS, HIPL, HIPR Other Christian Degroot MD DEXA Final Resu lt from Last 3 Months or Most Recently Relevant to Health Maintenance Insurance [employer] PB ONLY MEDICARE PART A HB ONLY MEDICA PRIME SOLUTION HB Advance Directives Documents on File Type Date Recorded 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
[2024-07-28 18:34] VITALS: BP 167/85; PULSE 66; RESP 16; TEMP 36.6; O2SAT 95; BMI 34.2
--- NOTE | 2024-07-28 19:14 | ED.GENADULT ---
HPI - General Adult General Chief complaint: Unspecified Complaint, Adult Stated complaint: L arm numbness Time Seen by Provider: 07/28/24 18:28 History of Present Illness HPI narrative: This 83-year-old female comes in stating that her left arm does not feel quite right. She states that it feels ?off?. She is currently wearing a Zio patch and states that this is the 3rd 1 she has worn in the last year and a half. She does admit to having anxiety about her health because her family members have had heart conditions. He does not report any pain. She states that these symptoms in her left arm just started today. She does not have any weakness or sign of neurologic deficit. She does state that she feels tired most of the time. She states that she is wearing a Zio patch because her heart rate has been somewhat slow. She is not on any beta-steph medications but is on antihypertensive medicines. Related Data Home Medications ?Medication ?Instructions ?Recorded ?Confirmed atorvastatin 20 mg tablet 20 mg PO QPM 05/21/22 07/28/24 lisinopril 40 mg tablet 40 mg PO DAILY 05/21/22 07/28/24 atenolol 25 mg tablet 25 mg PO DAILY 04/27/23 10/16/23 Previous Rx's ?Medication ?Instructions ?Recorded hydroxyzine HCl 25 mg tablet 25 - 50 mg (1 - 2 x 25 mg) PO TID 04/27/23 PRN anxiety #30 tabs ondansetron 4 mg disintegrating 4 mg PO Q6H #10 tabs 02/02/24 tablet Allergies Allergy/AdvReac Type Severity Reaction Status Date / Time cat dander Allergy Unknown Verified 07/28/24 18:33 Review of Systems Status of ROS: Reports: 10 or more systems reviewed and unremarkable except as noted in History and below Narrative: Constitutional: No fevers, no weight gain or loss. Eyes: No discharge. No vision changes. HENT: No congestion, no sore throat, no ear pain. Cardiovascular: No chest pain, no palpitations. Respiratory: No shortness of breath, no wheezes, no cough. Gastrointestinal: No abdominal pain, no vomiting, no diarrhea. Genitourinary: No dysuria, no hematuria. Musculoskeletal: Normal range of motion. Skin: No rashes, no pruritis. Neurological: No dizziness, weakness, sensory change, speech change. Endo/Heme/Allergies: No bruising or bleeding. No polydipsia. Pysch: no suicidality, no anxiety, no insomnia. All other systems reviewed and are negative. [facility] Social History Smoking Status: Never smoker Do you use any of these nicotine containing products: None Second hand tobacco smoke exposure: No How often do you have a drink containing alcohol: never AUDIT-C Alcohol total score: 0 Non-prescribed substance use: denies use service: No Exam Narrative: Exam Narrative: Constitutional: Well-developed, well-nourished, no acute distress. HEENT: Normocephalic, atraumatic. Neck: Normal range of motion. Nontender. Supple. Heart: Regular. No murmurs. Normal rate. Intact distal pulses. Lungs: Clear to auscultation. No chest discomfort. No wheezes, rhonchi, or rales. Abdomen: Normal bowel sounds. Nontender. No rebound tenderness. Genitalia: Deferred. Back: No midline tenderness. Normal range of motion. Extremities: Normal range of motion. No injury. Skin: Intact. No rash. Warm. No erythema or pallor. Neurologic: No altered sensation. No weakness. Alert and oriented. No facial asymmetry. Tongue is midline. Cycayc-[id number]-rvkt is normal. No pronator drift. Mediation Commissioner strength is equal bilaterally. Able to raise each leg from the bed. Psychiatric: No suicidality. No anxiety or depression. No insomnia. Nursing notes and vitals signs are reviewed. Const: Vital Signs, click to edit/add: Vital Signs - 24 hr 07/28/24 18:34 07/28/24 20:03 07/28/24 20:04 Temperature 97.8 F Pulse Rate 55 L 60 Pulse Rate [Pulse Oximeter] 66 Respiratory Rate 16 Blood Pressure 150/82 H Blood Pressure [Ri ght Upper Arm] 167/85 H Pulse Oximetry 95 95 95 Oxygen Delivery Me thod Room Air 07/28/24 20:15 Temperature Pulse Rate 56 L Pulse Rate [Pulse Oximeter] Respiratory Rate Blood Pressure Blood Pressure [Ri ght Upper Arm] Pulse Oximetry 95 Oxygen Delivery Me thod Course Vital Signs Vital signs: Initial Vital Signs Temperature 97.8 F 07/28/24 18:34 Temperature Source Temporal Artery Scan 07/28/24 18:34 Pulse Rate 66 07/28/24 18:34 Respiratory Rate 16 07/28/24 18:34 Blood Pressure 167/85 H 07/28/24 18:34 Blood Pressure Mean 112 H 07/28/24 18:34 Blood Pressure Position Semi-Fowlers 07/28/24 18:34 Pulse Oximetry 95 07/28/24 18:34 Oxygen Delivery Method Room Air 07/28/24 18:34 Vital Signs Temperature 97.8 F 07/28/24 18:34 Pulse Rate 66 07/28/24 18:34 Respiratory Rate 16 07/28/24 18:34 Blood Pressure 167/85 H 07/28/24 18:34 Pulse Oximetry 95 07/28/24 18:34 Oxygen Delivery Method Room Air 07/28/24 18:34 Temperature 97.8 F 07/28/24 18:34 Pulse Rate 56 L 07/28/24 20:15 Respiratory Rate 16 07/28/24 18:34 Blood Pressure 150/82 H 07/28/24 20:03 Pulse Oximetry 95 07/28/24 20:15 Oxygen Delivery Method Room Air 07/28/24 18:34 Medical Decision Making MDM Narrative Medical decision making narrative: This 83-year-old female comes in with rather vague and nonspecific symptoms as described above. Her exam is completely normal. She does admit to anxiety symptoms about her health as she is had family members with congestive heart failure and stroke. EKG and lab results today returned with all normal findings. I did have discussion with the patient regarding blood pressure medicines and criteria for managing elevated blood pressure. I advised her to follow-up with her primary physician in this regard. She is currently wearing a Zio patch. Lab Data Labs: Lab Results 07/28/24 Range/Units 19:27 WBC 6.06 (4.50-11.00) K/uL RBC 4.11 (4.00-5.20) m/uL Hgb 12.6 (12.0-16.0) gm/dL Hct 38.9 (33.0-51.0) % MCV 95 (80-100) fL MCH 31 (26-34) pg MCHC 32 (32-36) gm/dL RDW Coeff of Alejo 13.5 (11.5-15.5) % Plt Count 238 (140-440) K/uL Neut % (Auto) 61.2 (42.0-72.0) % Lymph % (Auto) 26.4 (20-44) % Gaines % (Auto) 9.6 (0.0-11.0) % Eos % (Auto) 1.3 (0.0-7.0) % Baso % (Auto) 0.5 (0.0-3.0) % Neut # (Auto) 3.71 (1.7-7.0) K/uL Lymph # (Auto) 1.60 (0.90-2.90) K/uL Gaines # (Auto) 0.60 (0.00-0.90) K/UL Eos # (Auto) 0.08 (0.00-0.50) K/uL Baso # (Auto) 0.03 (0.00-0.30) K/uL Abs Immat Gran (auto) 0.06 (0.00-0.30) K/uL Imm/Tot Granulo (auto) 1.0 % Sodium 138 (135-149) mmol/L Potassium 3.8 (3.6-5.1) mmol/L Chloride 101 (96-114) mmol/L Carbon Dioxide 30 (20-32) mmol/L Anion Gap 7 (7-15) mEq/L BUN 15 (7-30) mg/dL Creatinine 0.8 (0.5-1.5) mg/dL Estimated Creat Clear 32.53 Estimated GFR 72 ml/min Glucose 102 (60-115) mg/dL Calcium 9.2 (8.4-10.6) mg/dL NT-Pro-B Natriuret Pep 92 (See Note) pg/mL ECG Data Attestation: I personally reviewed and interpreted this ECG as follows: Interpretation: Normal sinus rhythm. Rate is 57 beats per minute. There are no ST or T-wave abnormalities. Discharge Plan Discharge Clinical Impression: Feared condition not demonstrated Patient Disposition: Home, Self-Care Condition: Stable Additional Instructions: Continue current plans. Follow up with primary physician for ongoing management. Return if worsening. Prescriptions: No Action atorvastatin 20 mg tablet 20 mg PO QPM lisinopril 40 mg tablet 40 mg PO DAILY ondansetron 4 mg tablet,disintegrating 4 mg PO Q6H Qty: 10 0RF atenolol 25 mg tablet 25 mg PO DAILY hydroxyzine HCl 25 mg tablet 25 - 50 mg PO TID PRN (Reason: anxiety) Qty: 30 0RF Follow Up/Referrals: Sharron Cantu PA-C [Primary Care Provider, Family Practice] Stand Alone Forms: [facility] Info Instructions
[2024-07-28 19:35] LABS: Basophils Absolute Auto 0.03 K/uL (0.00-0.30); Basophils Percent Auto 0.5 % (0.0-3.0); Eosinophils Absolute Auto 0.08 K/uL (0.00-0.50); Eosinophils Percent Auto 1.3 % (0.0-7.0); Hematocrit 38.9 % (33.0-51.0); Hemoglobin* 12.6 gm/dL (12.0-16.0); Immature Granulocytes Abs Auto 0.06 K/uL (0.00-0.30); Lymphocytes Percent Auto 26.4 % (20-44); Mean Corpuscular HGB Conc 32 gm/dL (32-36); Mean Corpuscular Hemoglobin 31 pg (26-34); Mean Corpuscular Volume 95 fL (80-100); Monocytes Percent Auto 9.6 % (0.0-11.0); Neutrophils Absolute Auto 3.71 K/uL (1.7-7.0); Neutrophils Percent Auto 61.2 % (42.0-72.0); Platelet Count* 238 K/uL (140-440); RDW Coefficient of Variation % 13.5 % (11.5-15.5); Red Blood Count 4.11 m/uL (4.00-5.20); White Blood Count* 6.06 K/uL (4.50-11.00)
[2024-07-28 19:52] LABS: Chloride* 101 mmol/L (96-114); Sodium* 138 mmol/L (135-149)
[2024-07-28 19:53] LABS: Potassium* 3.8 mmol/L (3.6-5.1)
[2024-07-28 19:55] LABS: Slide Review Reflex No
[2024-07-28 19:56] LABS: Anion Gap 7 mEq/L (7-15); Blood Urea Nitrogen* 15 mg/dL (7-30); Calcium* 9.2 mg/dL (8.4-10.6); Carbon Dioxide* 30 mmol/L (20-32); Creatinine* 0.8 mg/dL (0.5-1.5); Est. Creatinine Clearance* 32.53; Estimated Glomerular Filt Rate 72 ml/min; Glucose* 102 mg/dL (60-115)
[2024-07-28 20:03] VITALS: BP 150/82; PULSE 55; O2SAT 95
[2024-07-28 20:04] VITALS: PULSE 60; O2SAT 95
[2024-07-28 20:10] LABS: NT Pro B Type NatriureticPept* 92 pg/mL (See Note)
[2024-07-28 20:15] VITALS: PULSE 56; O2SAT 95
== END 2024-07-28 20:50 | disposition home or self-care (01) ==
PROVIDERS: Emergency Provider Emergency Medicine Emergency Medical Services; PCP Physician Assistant
DX: R20.0 Anesthesia of skin (principal); Z71.1 Person with feared health complaint in whom no diagnosis is made
CPT/HCPCS: 36415; 80048; 83880; 84484; 85025; 93005; 99284

== ENCOUNTER 2024-08-03 12:22 | Emergency (ER) | payer MEDICARE, OTHER, SELFPAY ==
--- OUTSIDE RECORDS SUMMARY | 2018-10-19 05:55 | XMS_ITS | Continuity of Care Document ---
Author Organization [facility] Address [address] [address] [place] [address] Phone Care Team Providers Care Chief Procurement Officer Name Role Phone Baldemar Ramirez MD Unavailable Unavailable Procedures Procedure Date Subsqt Hosp-da E&m Stable 15 M 19 Init Hosp-da E&m Mod Severity 9 Ugi Endo; W/contrl Bleed Any M 19 Ugi Endo; W/bx 1/mx Moderate sedation, initial 15 minutes Au Advance Directives Directive Yes / No Effective Date File Name No Information Encounters Encounter Description Practice Location Reason(s) For Visit Diagnoses Date Provider Providers Copied on Encounter [facility], [address] [address], [place], [id number], [place] tel:[phone] [facility] No Information 9 James Mcdermott. [address] [place] [address], [id number], [place]. tel:[phone] Subsqt Hosp-da E&m Stable 15 M [facility], [address] [address], [place], [id number], [place] tel:[phone] [facility] No Information 9 No Information [facility], [address] [address], [place], [id number], [place] tel:[phone] [facility] Gastric ulcer, unspecified chronicity, unspecified whether gastric ulcer hemorrhage or perforation present 9 Marquis Gonzalez. [address] [place] [address], [id number], [place]. tel:[phone] Init Hosp-da E&m Mod Severity [place] [facility], [address] [address], [place], [place], [id number], [place] tel:[phone] [facility] No Information Marquis Gonzalez. [address] [place] [address], [facility] [address], [place], [place], [id number], [place]. tel:[phone] Referring Provider: Lisa Hines, [address] [place] [address] [address], [place], [address] . tel:[phone] Family History Family Member Type Diagnosis Age At Onset No Information Payers Payer name Insurance type Covered republican ID Authoriza tion(s) No Information Social History Type Description Quantity Date Captured Comments Sex Female Smoking Status No Information Chief Complaint And Reason For Visit No Information Reason For Referral Reason For Referral No Information Plan Of Treatment Date Type Action Status Referral Ordered: EGD Appointment date/timeframe: 12/02/2018 ordered History Of Present Illness Encounter Date Complaint History Of Prese nt Illness No Information Functional Status Date Functional Assessmen t No Information Instructions Date Instruction Additional Infor mation No Information Assessments Type Assessment Date No Information Patient Care Teams Name Effective Dates (start - stop) Status Members No Information
--- OUTSIDE RECORDS SUMMARY | 2024-08-03 12:27 | XMS_ITS | Clinical Summary ---
Author Organization [facility] Address [address] [place] [address] Care Team Providers Care Milling Machinist Name Role Phone Sharron Cantu Primary Care Provider [phone] Allergies Active Allergy Reactions Criticality Noted Date [...] Description 07/21/2024 9:50 AM CDT Office Visit [facility] [address] [place], [place] [address] Sharron Cantu PA Blood Pressure (Recheck-BP still bounces all over) 07/21/2024 Travel 07/07/2024 8:35 AM CDT Office Visit [facility] [address] [place] [address] Kathy Davis PA Blood Pressure; Ear Problem 07/07/2024 Travel 07/07/2024 Nurse Triage [facility] [address] [place] [address] Sharron Cantu PA High Blood Pressure; Ear Problem from Last 3 Months Immunizations Immunization Administration Dates Next Due Amb Influenza, Inact (High-d ose) (Flu Clinic Only) 11/28/2015 COVID-19 vaccine ([employer]-Bio NTech 30mcg/0.3mL) 12YO+ MISAEL-SUCROSE PF, MDV 06/10/2021 COVID-19 vaccine (NanoDynamics-Bio NTech 30mcg/0.3mL) PF, MDV 11/19/2020,04/24/2020,04/03/2020 Influenza, High-dose [...] on file 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 Gender Identity Not on file Sexual Orientation [...] Description 11/14/2024 11:30 AM CDT Office Visit [facility] [address] [place] [address] James Bernstein MD [address] [place] [address] Health Maintenance Due Date Last Done Comments [...] Most Recently Relevant to Health Maintenance Insurance aitainment PB ONLY MEDICARE PART A HB ONLY MEDICA PRIME SOLUTION HB Advance Directives Documents on File Type Date Recorded Patient Quahogger Expl anation Healthcare Directive 03/28/2021 2:02 PM [...] 4:27 PM 10/01/2018 4:42 PM Care Teams Milling Machinist Relationship Specialty Start Date End Date Sharron Cantu PA [address] [place] [address] PCP - General Physician Hot Metal Mixer Operator Helper 08/23/22
[2024-08-03 12:33] VITALS: BP 129/79; PULSE 81; RESP 18; TEMP 36.8; O2SAT 96; BMI 34.2
--- NOTE | 2024-08-03 14:01 | ED.GENADULT ---
HPI - General Adult General Chief complaint: Laceration/Wound Stated complaint: cut on left hand Time Seen by Provider: 08/03/24 12:30 Source: patient Mode of arrival: ambulatory Limitations: no limitations History of Present Illness HPI narrative: 83-year-old female presenting today with a laceration to the left hand. Patient was cutting rhubarb in the garden, knife slipped. Denies other injury. Unknown last tetanus shot. Related Data Home Medications ?Medication ?Instructions ?Recorded ?Confirmed atorvastatin 20 mg tablet 20 mg PO QPM 05/21/22 08/03/24 lisinopril 40 mg tablet 40 mg PO DAILY 05/21/22 08/03/24 atenolol 25 mg tablet 25 mg PO DAILY 04/27/23 08/03/24 hydrochlorothiazide 12.5 mg tablet 12.5 mg PO DAILY 08/03/24 08/03/24 Previous Rx's ?Medication ?Instructions ?Recorded hydroxyzine HCl 25 mg tablet 25 - 50 mg (1 - 2 x 25 mg) PO TID 04/27/23 PRN anxiety #30 tabs ondansetron 4 mg disintegrating 4 mg PO Q6H #10 tabs 02/02/24 tablet Allergies Allergy/AdvReac Type Severity Reaction Status Date / Time cat dander Allergy Unknown Verified 08/03/24 12:38 Review of Systems Status of ROS: Reports: 6 or more systems reviewed and unremarkable except as noted in History and below [facility] Social History Smoking Status: Never smoker Do you use any of these nicotine containing products: None Second hand tobacco smoke exposure: No How often do you have a drink containing alcohol: never AUDIT-C Alcohol total score: 0 Non-prescribed substance use: denies use service: No Exam Narrative: Exam Narrative: Well-nourished well-developed patient in no acute distress. Alert and oriented. Answers questions appropriately. Mood and affect are appropriate. Thoughts are goal oriented and rational. No tangential or magical thinking noted. Patient speaks in full sentences without needing to catch her breath. HEENT: Normocephalic atraumatic. Extraocular muscles are intact. Conjunctivae are moist without any icterus noted. Moist mucous membranes. Extremities: Patient has a 1 in laceration at the base of the thumb on the dorsal surface of the hand. Laceration extends through the dermis into the subcutaneous tissue, does not penetrate through the subcutaneous tissue. No tendons or vasculature visible. Const: Vital Signs, click to edit/add: Vital Signs - 24 hr 08/03/24 12:33 Temperature 98.3 F Pulse Rate [Right Pulse Oximeter] 81 Respiratory Rate 18 Blood Pressure [Ri ght Upper Arm] 129/79 Pulse Oximetry 96 Oxygen Delivery Me thod Room Air Course Course ED Course: Area was cleaned in the usual sterile manner and anesthetized with lidocaine. Six sutures with 4-0 Ethilon placed without difficulty. Vital Signs Vital signs: Initial Vital Signs Temperature 98.3 F 08/03/24 12:33 Temperature Source Temporal Artery Scan 08/03/24 12:33 Pulse Rate 81 08/03/24 12:33 Pulse Rhythm Regular 08/03/24 12:33 Pulse Strength 3+ Normal 08/03/24 12:33 Respiratory Rate 18 08/03/24 12:33 Blood Pressure 129/79 08/03/24 12:33 Blood Pressure Mean 95 08/03/24 12:33 Blood Pressure Position Sitting 08/03/24 12:33 Pulse Oximetry 96 08/03/24 12:33 Oxygen Delivery Method Room Air 08/03/24 12:33 Vital Signs Temperature 98.3 F 08/03/24 12:33 Pulse Rate 81 08/03/24 12:33 Respiratory Rate 18 08/03/24 12:33 Blood Pressure 129/79 08/03/24 12:33 Pulse Oximetry 96 08/03/24 12:33 Oxygen Delivery Method Room Air 08/03/24 12:33 Temperature 98.3 F 08/03/24 12:33 Pulse Rate 81 08/03/24 12:33 Respiratory Rate 18 08/03/24 12:33 Blood Pressure 129/79 08/03/24 12:33 Pulse Oximetry 96 08/03/24 12:33 Oxygen Delivery Method Room Air 08/03/24 12:33 Medical Decision Making MDM Narrative Medical decision making narrative: Laceration, treated per above. Tetanus shot updated today Discharge Plan Discharge Clinical Impression: Laceration Patient Disposition: Home, Self-Care Condition: Improved Additional Instructions: Keep wound clean and dry. Do not soak such as taking baths, swimming or doing dishes. Follow-up in approximately 1 week for suture removal with your primary care provider. Watch for signs and symptoms of infection including increasing redness of the area, purulent drainage, or fever. If this occurs follow-up right away with your doctor or return to the ER. Prescriptions: No Action atorvastatin 20 mg tablet 20 mg PO QPM lisinopril 40 mg tablet 40 mg PO DAILY ondansetron 4 mg tablet,disintegrating 4 mg PO Q6H Qty: 10 0RF atenolol 25 mg tablet 25 mg PO DAILY hydroxyzine HCl 25 mg tablet 25 - 50 mg PO TID PRN (Reason: anxiety) Qty: 30 0RF hydrochlorothiazide 12.5 mg tablet 12.5 mg PO DAILY Follow Up/Referrals: Sharron Cantu PA-C [Primary Care Provider, Family Practice] Stand Alone Forms: [employer] Info Instructions
[2024-08-03] MEDS: TETANUS/DIPHTH/PERTUSSIS 0.5 ML SYRINGE IM (14:08)
== END 2024-08-03 14:22 | disposition home or self-care (01) ==
LOC: ED 14:18
PROVIDERS: Emergency Provider Family Medicine; PCP Physician Assistant
DX: S61.412A Laceration without foreign body of left hand, initial encounter (principal); Z23 Encounter for immunization; W26.0XXA Contact with knife, initial encounter
CPT/HCPCS: 12001; 90471; 90715; 99283; 99284

== ENCOUNTER 2024-08-16 20:06 | Outpatient (CLI) | payer MEDICARE, OTHER, SELFPAY ==
--- OUTSIDE RECORDS SUMMARY | 2024-08-17 00:51 | XMS_ITS | Clinical Summary ---
Author Organization [facility] Address [address] [place] [address] Care Team Providers Care Infection Control Practitioner Name Role Phone Sharron Cantu Primary Care Provider [phone]- [phone] Allergies Active Allergy Reactions Criticality Noted Date [...] Encounters Date Type Department Care Team Description 08/11/2024 Telephone [facility] [address] [place] [address] Sharron Cantu PA Results 08/10/2024 10:00 AM CDT Procedure Only [facility] [address] [place] [address] Shwetha Thakur MD Suture Removal (Patient states she had 6 s... 08/10/2024 Travel 07/21/2024 10:15 AM CDT [facility] [address] [facility] [address] 07/21/2024 9:50 AM CDT Office Visit [facility] [address] [place] [address] Sharron Cantu PA Blood Pressure (Recheck-BP still bounces all over) 07/21/2024 Travel 07/07/2024 8:35 AM CDT Office Visit [facility] [address] [place] [address] Kathy Davis PA Blood Pressure; Ear Problem 07/07/2024 Travel 07/07/2024 Nurse Triage [facility] [address] [place] [address] Sharron Cantu PA High Blood Pressure; Ear Problem from Last 3 Months Immunizations Immunization Administration Dates Next Due Amb Influenza, Inact (High-d ose) (Flu Clinic Only) 11/28/2015 COVID-19 vaccine ([employer]-Bio NTech 30mcg/0.3mL) 12YO+ MISAEL-SUCROSE PF, MDV 06/10/2021 COVID-19 vaccine ([employer]-Bio NTech 30mcg/0.3mL) PF, MDV 11/19/2020,04/24/2020,04/03/2020 Influenza, High-dose [...] failure Brother No Known Problems Daughter 1 Tiffany Stroke Daughter 2 Leola Heart Disease Father CHF Other Father GLAUCOMA Cancer-breast Maternal Grandmother Other Mother COPD Stroke Mother Cancer Son 1 testicular ca 2001 No Known Problems Son 2 Pedro Relation Name Status Comments Brother Daughter 1 Tiffany Alive Daughter 2 Leola Father Maternal Grandmother Mother Son 1 testicular ca Son 2 Pedro Alive Social History Tobacco Use Types Packs/Day Years Used Date Smoking Tobacco: Never Smokeless Tobacco: Never Tobacco Cessation:Counseling Given: Yes Alcohol Use Standard Drinks/Week Comments Yes 0 (1 standard drink = 0.6 oz pure alcohol) maybe a glass of wine on sundays PHQ-2 Answer Date Recorded PHQ-2 TOTAL SCORE [...] on file 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 Gender Identity Not on file Sexual Orientation [...] Sign Reading Time Taken Comments Blood Pressure 129/80 08/10/2024 9:59 AM CDT Pulse 63 08/10/2024 9:59 AM CDT Temperature 36.8 C (98.2 F) 05/29/2022 2:24 PM CDT Respiratory Rate 18 08/18/2019 9:31 AM CDT Oxygen Saturation 97% 08/10/2024 9:59 AM CDT Inhaled Oxygen Concentration - - Weight 85.3 kg (188 lb) 08/10/2024 9:59 AM CDT Height 157.9 cm (5' 2.17) 12/11/2023 2:50 PM CD T Body Mass Index 34.2 12/11/2023 2:50 PM CDT Plan of Treatment Upcoming Encounters Date Type Department Care Team (Late st Contact Info) Description 11/14/2024 11:30 AM CDT Office Visit [facility] [address] [place] [address] James Bernstein MD [address] [place] [address] Health Maintenance Due Date Last Done Comments [...] for age 50+ Completed 10/10/2019, 05/10/2014, 10/16/2005 (IA) Tdap Completed 05/23/2021, 01/30/2011 RSV vaccine for adults or Completed 01/13/2023 Influenza Vaccine Completed 11/03/2023, , 10/15/2017, Additional history exists COVID-19 vaccine series Completed 07/08/19, 11/12/2023, 01/01/2023, Additional history exists Hepatitis B series for 19+ Aged Out N o longer eligible based on patient's age to complete this topic Procedures Procedure Name Priority Date/Time Associated Diagnosis Comments EXTENDED HOLTER Routine 07/21/2024 Bradycardia XR DXA BONE DENSITY 2 SITES AXIAL Routine 05/14/2017 9:29 AM CDT Menopausal and perimenopausal disorder Osteopenia, unspecified location from Last 3 Months or Most Recently Relevant to Health Maintenance Results * EXTENDED HOLTER (07/21/2024) 07/21/2024 Narrative Kade Rodarte MD - 08/11/2024 12:00 AM CDT Agree with Findings. Please see scan document for full report. Signed By Kade Rodarte MD Procedure Note Kade Rodarte MD - 08/11/2024 Agree with Findings. Please see scan document for full report. 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 Wilmer (granddeepak) is proxy medical decision maker Question Answer Comments Code Status Discussion: Discussed * Full Code Date Activated Date Inactivated Comments 10/01/2018 4:27 PM 10/01/2018 4:42 PM Care Teams Infection Control Practitioner Relationship Specialty Start Date End Date Sharron Cantu PA [address] [place] [address] PCP - General Physician Tamping Machine Operator 08/23/22
== END 2024-08-16 20:07 | disposition home or self-care (01) ==
LOC: SLEEP 20:07
PROVIDERS: PCP Physician Assistant; Visit Provider Internal Medicine
DX: G47.33 Obstructive sleep apnea (adult) (pediatric) (principal); G47.10 Hypersomnia, unspecified
CPT/HCPCS: 95810